=== PATIENT | male | born 1955 | race African-American/Black ===

== ENCOUNTER 2017-05-22 21:34 | Inpatient (IN) ==
[2017-05-22] MEDS ORDERED: ETOMIDATE 20 MG/10 ML VIAL IV ONE (21:46)
--- NOTE | 2017-05-22 21:46 | Emergency Department Note ---
Arrival - Arrival Chief Complaint: Altered Mental Status Stated Complaint: ams ED Nursing Triage Note: unresponsive, blood sugar read low, aginal breathing, pulse was 32 Mode of Arrival: Stretcher Time Seen by Provider: 05/22/17 21:42 - History of Present Illness HPI Narrative: The patient is a mentally retarded 61-year-old who was found to have elevated liver enzymes recently and is currently undergoing workup. Hepatitis and HIV have not been confirmed nor excluded. The family called the ambulance today because the patient was found unresponsive. On their arrival his sugar was 20. They gave him an amp of D50 which improved the sugar to 281. The patient remains in agonal respirations and appears dusky. He is unresponsive and unable to contribute to his history. The family member present states that she has the power of trial attorney and that she does not want any heroic measures taken given the patient's current medical condition. Additionally she states that he has been through "a lot" and that he is mentally retarded. She is unsure whether he has had any recent nausea vomiting or fever. Review of System - Review of System ROS unobtainable: due to mental status - Review of System Genitourinary male: Present: other Endocrine: Present: other (Rapid weight loss) Medical,Surgical,& Family Hx - Medical History Gastrointestinal: History of: Hepatitis (Elevated liver enzymes per family history) Other: History of: HIV (Unconfirmed) Exam Physical Examination: General: Patient is cachectic and very emaciated. He is currently demonstrating agonal respirations and is unresponsive. His skin is dusky. He appears very pale. HEENT: The extraocular muscles are intact. Conjunctiva pale. Oropharynx is moist. There is no erythema or exudate. The tympanic membranes are shiny bilaterally. Neck: There is no adenopathy. Full range of motion is noted without pain. The trachea is midline. No JVD is present. Lungs: There is normal excursion of the chest with the lungs s demonstrating wheezes bilaterally. No subcostal retractions are present. There is no point tenderness present. Heart: The heart has a regular rate and rhythm with no gallops or murmurs. Abdomen: The abdomen is nontender and nondistended with no rebound, guarding, or masses. Bowel sounds are normal. Back: The back demonstrates a normal appearance with no evidence of trauma. Genitourinary: Not examined. Extremities: The extremities demonstrate no clubbing, cyanosis, or edema. The visualized range of motion is normal. They appear atraumatic. Neuro: Cranial nerves II through XII are difficult to check given his current mental status. He has a staring gaze but is otherwise unable to be examined. Focal motor or sensory deficits in the extremities are difficult to determine. Skin: Skin is warm and dry with no evidence of rash. Very poor skin turgor is noted. Vital Signs: Vital Signs Pulse Rate 57 L 05/22/17 22:13 Respiratory Rate 8 L 05/22/17 22:13 Blood Pressure 145/102 05/22/17 22:13 Course - Reevaluation(s) Reevaluation #1: The patient continues to demonstrate hypoventilation with respiratory rate around 6-10 breaths per minute. He is still essentially unresponsive with eyes open and unable to contribute to any history. The chest x-ray demonstrates hyperinflation and suggest emphysematous changes. No definite parenchymal opacity is present. Fluid boluses in place. I have ordered BiPAP and waiting for the BiPAP machine to arrive. CBC demonstrates neutropenia. Time: 22:05 Reevaluation #2: The patient appears possibly slightly more responsive. He may be making improved inspiratory effort. He remains unresponsive. Systolic pressure 100 mmHg. Heart rate remains 60. Time: 22:51 - Consultations Consultation #1: The hospitalist will admit to the hospitalist service. Time: 23:32 Results - Labs CBC & BMP: 05/22/17 21:49 05/22/17 22:50 Lab Results: I have reviewed the patients labs Labs: Lab Results WBC 2.2 T/CUMM (4-12) L 05/22/17 21:49 RBC 4.38 MC/CUMM (3.8-5.5) 05/22/17 21:49 Hgb 13.4 GM/DL (14.0-18.0) L 05/22/17 21:49 Hct 37.1 VOL% (42.0-52.0) L 05/22/17 21:49 MCV 84.7 FL (87-102) L 05/22/17 21:49 MCH 31 PG (27-34) 05/22/17 21:49 MCHC 36.1 GM/DL (32-36) H 05/22/17 21:49 RDW 12.7 % (9.3-17.3) 05/22/17 21:49 Plt Count 115 T/CUMM (130-400) L 05/22/17 21:49 MPV 10.2 FL (9.6-12.0) 05/22/17 21:49 Neut % (Auto) 85.6 % (38.7-73.9) H 05/22/17 21:49 Lymph % (Auto) 9.0 % (21.2-54.2) L 05/22/17 21:49 [place] % (Auto) 4.5 % (1.7-12.7) 05/22/17 21:49 Eos % (Auto) 0.0 % (0.00-10.9) 05/22/17 21:49 Baso % (Auto) 0.0 % (0.0-0.8) 05/22/17 21:49 Neut # (Auto) 1.9 10*3/uL (1.4-7.4) 05/22/17 21:49 Lymph # (Auto) 0.2 10*3/uL (1.4-4.0) L 05/22/17 21:49 [place] # (Auto) 0.1 10*3/uL (0.11-0.8) L 05/22/17 21:49 Eos # (Auto) 0.0 10*3/uL (0.0-0.87) 05/22/17 21:49 Baso # (Auto) 0.0 10*3/uL (0.0-0.2) 05/22/17 21:49 Immature Gran % 0.9 % 05/22/17 21:49 Nucleated RBC % 0.0 /100WBC 05/22/17 21:49 Immature Gran # 0.02 # 05/22/17 21:49 Nucleated RBCs # 0.00 10*3/uL 05/22/17 21:49 Sodium 125 MMOL/L (136-145) L 05/22/17 22:50 Potassium 3.9 MMOL/L (3.5-5.1) 05/22/17 22:50 Chloride 94 MMOL/L (98-107) L 05/22/17 22:50 Carbon Dioxide 23 MMOL/L (21-32) 05/22/17 22:50 Anion Gap 11.9 MMOL/L (5.0-15.0) 05/22/17 22:50 BUN 25 MG/DL (7-18) H 05/22/17 22:50 Creatinine 0.30 MG/DL (0.70-1.30) L 05/22/17 22:50 GFR Calculation 122 ML/MIN 05/22/17 22:50 BUN/Creatinine Ratio 83.00 RATIO (6.00-20.00) H 05/22/17 22:50 Glucose 301 MG/DL (74-106) H 05/22/17 22:50 Calculated Osmolality 265.5 MOS/KG (273-304) L 05/22/17 22:50 Calcium 6.5 MG/DL (8.5-10.1) L 05/22/17 22:50 Total Bilirubin 0.40 MG/DL (0.2-1.0) 05/22/17 22:50 AST 494 U/L (0-37) H 05/22/17 22:50 ALT 272 U/L (16-61) H 05/22/17 22:50 Alkaline Phosphatase 68 U/L (45-117) 05/22/17 22:50 Total Creatine Kinase 206 U/L (39-308) 05/22/17 21:49 CK-MB (CK-2) 19.6 NG/ML (0.5-3.6) H 05/22/17 21:49 CK and CKMB Interp 9.5 % 05/22/17 21:49 Troponin I 0.032 NG/ML (0.00-0.045) 05/22/17 21:49 B-Natriuretic Peptide 301 PG/ML (2-100) H 05/22/17 21:49 Total Protein 3.0 G/DL (6.4-8.3) L 05/22/17 22:50 Albumin 1.5 G/DL (3.4-5.0) L 05/22/17 22:50 Globulin 1.5 G/DL (2.3-3.5) L 05/22/17 22:50 Albumin/Globulin Ratio 1.0 RATIO (1.1-2.2) L 05/22/17 22:50 Urine Color Yellow (Yellow) 05/22/17 21:47 Urine Appearance Clear (Clear) 05/22/17 21:47 Urine pH 7.0 (4.5-8.0) 05/22/17 21:47 Ur Specific Chunky 1.014 (1.001-1.035) 05/22/17 21:47 Urine Protein 100 MG/DL 05/22/17 21:47 Urine Glucose (UA) >=500 mg/dL (Negative) 05/22/17 21:47 Urine Ketones Negative mg/dL (Negative) 05/22/17 21:47 Urine Blood Small mg/dL (Negative) 05/22/17 21:47 Urine Nitrate Negative (Negative) 05/22/17 21:47 Urine Bilirubin Negative mg/dL (Negative) 05/22/17 21:47 Urine Urobilinogen 4.0 EU/DL (0.2-1.0) H 05/22/17 21:47 Urine Leukocytes Negative Júnior/ul (Negative) 05/22/17 21:47 Urine RBC 2 /HPF (0-4) 05/22/17 21:47 Urine WBC 2 /HPF (0-6) 05/22/17 21:47 Ur Squamous Epith Cells Occasional /HPF (0-10) 05/22/17 21:47 Ur Transition Epith Cell Occasional /HPF (<1) 05/22/17 21:47 Urine Bacteria Occasional /HPF (Few) 05/22/17 21:47 Urine Mucus Occasional /LPF (Occasional) 05/22/17 21:47 Ur Culture Indicated? Not indicated 05/22/17 21:47 ABG pH 7.068 (7.35-7.45) L* 05/22/17 22:52 ABG pCO2 38.6 MM HG (35-48) 05/22/17 22:52 ABG pO2 43.8 MM HG (80-95) L 05/22/17 22:52 ABG HCO3 10.4 MMOL/L (20-26) L 05/22/17 22:52 ABG Total CO2 11.3 MMOL/L (23-27) L 05/22/17 22:52 ABG O2 Saturation 55.9 % (95-100) L 05/22/17 22:52 ABG Base Excess -17.6 MMOL/L (-2.5-2.5) L 05/22/17 22:52 FiO2 28.00 PERCENT (0-100) 05/22/17 22:52 - Diagnostic Findings Procedure: Chest x-ray: image reviewed by me (Hyperinflation. No definite parenchymal opacities.) Critical Care Time Critical Care Time: Yes Total Critical Care Time: 54 Disposition Clinical Impression: Delirium due to general medical condition, Multiple episodes of hypoglycemia, Wasting generalized, Leukopenia Case discussed with: patient, patient's family Disposition: Still a Patient Condition: Critical Time of Disposition: 23:30
[2017-05-22] MEDS ORDERED: SUCCINYLCHOLINE 200 MG/10 ML VIAL ONE (21:47)
[2017-05-22] MEDS ORDERED: ALBUTEROL 2.5 MG/3 ML NEB RESP TX STA (21:49)
[2017-05-22] MEDS ORDERED: SODIUM CHLORIDE 0.9% 2,000 ML IV STA (21:49)
[2017-05-22 21:57] LABS: Hematocrit 37.1 VOL% (42.0-52.0); Hemoglobin 13.4 GM/DL (14.0-18.0); Immature Granulocytes % 0.9 %; Immature Granulocytes Absolute 0.02 #; Lymphocytes # 0.2 10*3/uL (1.4-4.0); Mean Corpuscular HGB Conc 36.1 GM/DL (32-36); Mean Corpuscular Hemoglobin 31 PG (27-34); Mean Corpuscular Volume 84.7 FL (87-102); Mean Platelet Volume 10.2 FL (9.6-12.0); Monocytes # 0.1 10*3/uL (0.11-0.8); Monocytes % 4.5 % (1.7-12.7); Neutrophils # 1.9 10*3/uL (1.4-7.4); Neutrophils % 85.6 % (38.7-73.9); Platelet Count 115 T/CUMM (130-400); Red Blood Count 4.38 MC/CUMM (3.8-5.5); Red Cell Distribution Width 12.7 % (9.3-17.3); White Blood Count 2.2 T/CUMM (4-12)
[2017-05-22 22:06] LABS: Apearance,Urine CLEAR (Clear); Bacteria,Urine Occasional /HPF (Few); Bilirubin,Urine Negative (Negative); Blood, Urine Small mg/dL (Negative); Glucose,Urine (UA) >=500 mg/dL (Negative); Ketones,Urine Negative (Negative); Mucus,Urine Occasional /LPF (Occasional); Nitrite,Urine Negative (Negative); Protein,Urine 100 MG/DL; RBC,Urine 2 /HPF (0-4); Squamous Epithelial Cell,Urine Occasional /HPF (0-10); Transitional Epi Cells,Urine Occasional /HPF (<1); Urine Color Yellow (Yellow); Urine Specific Gravity 1.014 (1.001-1.035); WBC,Urine 2 /HPF (0-6)
[2017-05-22] MEDS ORDERED: cefTRIAXone 1,000 MG VIAL IV STA (22:08)
[2017-05-22 22:21] LABS: CKMB % 9.5 %; Troponin I Only 0.032 NG/ML (0.00-0.045)
[2017-05-22] MEDS ORDERED: cefTRIAXone 1,000 MG VIAL ONE (22:21)
[2017-05-22] MEDS ORDERED: SODIUM CHLORIDE 0.9% 100 ML IV ONE (22:21)
[2017-05-22] MEDS ORDERED: DEXTROSE 50% 25 GM/50 ML VIAL IV STA (22:30)
[2017-05-22] MEDS ORDERED: DEXTROSE 50% 25 GM/50 ML VIAL IV ONE (22:37)
[2017-05-22 23:00] LABS: ABG Base Excess -17.6 MMOL/L (-2.5-2.5); ABG HCO3 10.4 MMOL/L (20-26); ABG Oxygen Saturation 55.9 % (95-100); ABG PCO2 38.6 MM HG (35-48); ABG PO2 43.8 MM HG (80-95); ABG TCO2 11.3 MMOL/L (23-27); Allen Test Positive; Pt O2 Delivery Device BIPAP
[2017-05-22] MEDS ORDERED: SODIUM CHLORIDE 0.9% 1,000 ML IV STA (23:03)
[2017-05-22 23:04] LABS: ABG PH 7.068 (7.35-7.45)
[2017-05-22 23:24] LABS: Albumin 1.5 G/DL (3.4-5.0); Bilirubin,Total 0.4 MG/DL (0.2-1.0); Calcium 6.5 MG/DL (8.5-10.1); Osmolality,Calculated 265.5 MOS/KG (273-304); Potassium 3.9 MMOL/L (3.5-5.1)
--- NOTE | 2017-05-23 00:47 | Hospitalist History & Physical ---
Assessment and Plan (1) Unresponsiveness Status: Acute Assessment and plan: Patient is having agonal respirations, he is dusky in appearance. Family do not want any heroic measures and want him to be a DNR. Aetiology of condition is unclear, differentials include- sepsis, dehydration, severe acidosis, repeated vs prolonged hypoglycemia, ?HIV-advance Plan -Admit to a monitored bed IVF, IV broadspectrum antibiotics Panculture- blood, urine, family not really interested in CSF analysis CT head if patient is stable enough HIV testing CD4 count hepatitis panel ammonia level consider hospice care Cardiac enzymes INR Current Visit: Yes (2) Leukopenia Status: Acute Assessment and plan: Family states patient is being worked up for HIV. Plan HIV testing CD4 count CBC in am Current Visit: Yes (3) Multiple episodes of hypoglycemia Status: Acute Assessment and plan: Family states patient is not a known Diabetic. Blood sugar was in the 20s at home, EMS gave an amp of D50, he also received another one in the ER.His blood sugar is currently in the 300s Plan SSC, accuchecks HbA1c level C-peptide, pro insulin levels Current Visit: Yes (4) Wasting generalized Status: Acute Assessment and plan: will need a Nutritional consult if he pulls through Current Visit: Yes History of Present Illness Chief complaint: unresponsiveness History of present illness: Mr. Mitchell is a 61 year old male with a history of mental retardation,elevated liver enzymes who is being worked up for Hepatitis and HIV as outpatient was brought to the ER for evaluation of altered mental status. Family members found him at home unresponsive this evening. EMS was called and his blood sugar was found to be 20. They gave him an amp of D50 which improved the sugar to 281. When I saw him in the ER, he was in agonal respirations, minimally responsive, dusky, hypothermic. His blood pressure dropped requiring boluses of IVF. His Labs showed severe acidosis with a ph-7.0, PCO2-38.6,PO2-43.8 and a bicarbonates of 10.4.Lactic was 2.3 and WBC-2.2.The family member present states that she has the power of deputy commonwealth's attorney and that she does not want any heroic measures taken given the patient's current medical condition. She made patient a DNR knowing that patient's prognosis is guarded.History was not detailed and fully known by Family members. Allergies Allergy/AdvReac Type Severity Reaction Status Date / Time No Known Allergies Allergy Unverified 05/23/17 00:47 Medical,Surgical,& Family Hx - Medical History Gastrointestinal: History of: Hepatitis (Elevated liver enzymes per family history) Other: History of: HIV (Unconfirmed) - Social History Smoking Status: Never smoker Frequency of Alcohol Use: None Type of Drug Use: None ROS unobtainable: due to mental status, due to delirium Exam - Constitutional Vitals: Period Temp Pulse Resp BP Sys/Tellez Pulse Ox Last 24 Hr 96.8 F 57-63 8-18 143-145/93-102 General appearance: severe distress, other (agonal respirations on BIPAP) - Head Head exam: Present: normal inspection - Respiratory Respiratory exam: Present: decreased breath sounds - Cardiovascular Cardiovascular exam: Present: regular rate and rhythm - GI/Abdominal GI/Abdominal exam: Present: normal bowel sounds - Extremities Exam Extremities exam: Present: normal inspection - Neurological Exam Neurological exam: Present: other (unresponsive) Results - Labs CBC & BMP: 05/22/17 21:49 05/22/17 22:50 Lab Results: I have reviewed the past 24 hour labs
[2017-05-23] MEDS ORDERED: SODIUM CHLORIDE 0.9% 1,000 ML IV SCH (02:11)
[2017-05-23] MEDS ORDERED: GLUCAGON 1 MG VIAL IM PRN (02:11)
[2017-05-23] MEDS ORDERED: VANCOMYCIN INJ 1,000 MG in SODIUM CHLORIDE 0.9% 250 ML IV ONE (03:00)
[2017-05-23] MEDS: CEFEPIME 500 MG in SODIUM CHLORIDE 0.9% 100 ML IV SCH ×2 (03:58→15:32)
[2017-05-23] MEDS: DEXTROSE 50% 25 GM/50 ML VIAL IV PRN ×5 (05:23→23:50)
[2017-05-23] MEDS: INSULIN REGULAR 100 UNIT/ML SUBCUT SCH ×4 (05:28→23:56)
--- NOTE | 2017-05-23 06:26 | EKG Report ---
Stationary ECG Study [facility] Test Date: 05/23/2017 2:31:54 AM Pat Name: CARLOS PRICE Department: Room: 545 Gender: M Database Management Specialist: SLIM : [id number] Requested by: Florinda Guaman Order Number: [id number] Reading MD: GUILLERMO MADRIGAL Intervals [place] Rate: 68 P: 77 LA: 162 QRS: 88 QRSD: 91 T: 116 QT: 403 QTc: 421 Interpretive Statements SINUS RHYTHM SEPTAL MYOCARDIAL INFARCTION, OLD Electronically Signed On 05-23-17 12:53:32 CDT by GUILLERMO MADRIGAL [email or web address]
--- NOTE | 2017-05-23 07:10 | XRay Report ---
XR chest 1V portable Indication: Chest pain, shortness of breath Comparison: None available Findings: The heart and mediastinum are normal in size and configuration. The pulmonary vascularity is normal in caliber. Lung volumes are increased with prominent bronchial markings. There is suggestion of some faint to patchy density in the left lung base. No other lung infiltrates, effusions, pneumothorax or other abnormality is demonstrated. Impression: Chronic lung changes. Faint patchy left lower lung density could indicate pneumonia. PROCEDURE INTERPRETED AT [facility] DEPARTMENT OF RADIOLOGY Final Report Signed by: Dr. Adolfo Castrejon
[2017-05-23 07:53] LABS: INR 1.2; PT Patient Result 12.9 SECS
[2017-05-23 08:16] LABS: CKMB % 8.6 %; Troponin I Only 0.386 NG/ML (0.00-0.045)
[2017-05-23 08:29] LABS: Risk Ratio 1.1; Thyroid Stimulating Hormone 0.966 uIU/ml (0.358-3.74); VLDL CHOLESTEROL 3.2 MG/DL
[2017-05-23 08:55] LABS: Folate 17.3 NG/ML (5.4-24.0); Hepatitis A Ab IgM Quant 0.32 Index; Hepatitis A Ab IgM Result Negative (Negative); Hepatitis B Core Ab Result Negative (Negative); Hepatitis B Core IgM Quant < 0.05 Index; Hepatitis B Surface Ab Result Negative; Hepatitis B Surface Ag Quant < 0.10 Index; Hepatitis B Surface Ag Result Negative (Negative); Vitamin B12 > 2000 PG/ML (211-911)
[2017-05-23 08:56] LABS: Hepatitis B Core IgM Result Negative (Negative); Hepatitis C Virus Ab Quant 0.09 Index; Hepatitis C Virus Ab Result Negative (Negative)
[2017-05-23 08:58] LABS: Albumin 2.4 G/DL (3.4-5.0); Bilirubin,Total 0.9 MG/DL (0.2-1.0); Calcium 7.6 MG/DL (8.5-10.1); Osmolality,Calculated 258.2 MOS/KG (273-304); Potassium 4.1 MMOL/L (3.5-5.1); Total Protein 4.9 G/DL (6.4-8.3)
[2017-05-23 09:41] LABS: Lymphocytes # 0.1 10*3/uL (1.4-4.0); Lymphocytes % 22.9 % (21.2-54.2); Mean Corpuscular HGB Conc 38.2 GM/DL (32-36); Mean Corpuscular Hemoglobin 31 PG (27-34); Mean Corpuscular Volume 80.2 FL (87-102); Mean Platelet Volume 10.2 FL (9.6-12.0); Monocytes % 4.2 % (1.7-12.7); Neutrophils # 0.4 10*3/uL (1.4-7.4); Neutrophils % 72.9 % (38.7-73.9); Platelet Count 132 T/CUMM (130-400); Red Blood Count 4.24 MC/CUMM (3.8-5.5); Red Cell Distribution Width 12.3 % (9.3-17.3)
[2017-05-23 09:44] LABS: White Blood Count 0.5 T/CUMM (4-12)
[2017-05-23 10:36] LABS: ABG Base Excess -3.9 MMOL/L (-2.5-2.5); ABG HCO3 20.9 MMOL/L (20-26); ABG Oxygen Saturation 82.3 % (95-100); ABG PH 7.321 (7.35-7.45); ABG PO2 53.6 MM HG (80-95); ABG TCO2 19.5 MMOL/L (23-27); Allen Test Positive; Pt O2 Delivery Device BIPAP
[2017-05-23] MEDS: DEXTROSE 5% NACL 0.9% 1,000 ML IV SCH (11:01)
[2017-05-23 11:23] LABS: Burr Cells Slight; Hypochromasia Slight; Lymphocytes 20 % (20-55); Platelet Estimate Normal; Segmented Neutrophils 80 % (50-85); Total Cells Counted 100
--- NOTE | 2017-05-23 13:44 | Cardiology Consult Note ---
Pepe Taylor Vanessa RN, am scribing for, and in the presence of, Steff Mora DO 13 :42. Assessment and Plan - Time spent with patient Time spent with patient: Greater than 30 minutes (Due to assessment, planning, documentation, and medication review) (1) Troponin I above reference range Status: Acute Assessment and plan: No clinical findings for ACS. I do not think this represents any clinical significance in the setting. Current Visit: Yes (2) Elevated LFTs Status: Acute Assessment and plan: LFTs have progressively elevated since labs drawn on May 15. Hepatitis panel is negative. The patient has had recurrent hypoglycemia. This appears to be a marker for poor hepatic synthetic function however his INR is only 1.2. Current Visit: Yes (3) Leukopenia Status: Acute Assessment and plan: Afebrile. Patient is being evaluated for HIV and other viral issues Current Visit: Yes (4) Unresponsiveness Status: Acute Assessment and plan: Patient is mentally handicapped. He has now been found unresponsive with severe hypoglycemia, and his labs are grossly abnormal. CT of the head unable to be obtained due to patient's mental status and inability lie still. 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 Mitchell is a 61 year old black male whose past medical history includes mental retardation, elevated LFTs as of recently. Per family reports, patient is currently being worked up for hepatitis and HIV on outpatient basis. Patient was brought to [facility] ED on the evening of May 22 after his family found him unresponsive. Per EMS reports, his glucose was found to be 20, and after he was administered 1 amp of D50, glucose improved to 81. However, he remains more unresponsive than baseline, and he was noted to be agonal in the emergency room. Blood work drawn in the ER reveals leukopenia. ABGs were also drawn, severe acidosis noted, and oxygen saturation levels were in the 70s. Chest x-ray demonstrated chronic lung changes and possible left lower lobe pneumonia. Patient was placed on BiPAP machine and has been admitted to medical floor room. In the course of diagnostic workup, patient has had 2 sets of cardiac biomarkers drawn. Most recent set with troponin 0.386 with a normal CPK. Cardiology has not been consulted for evaluation of abnormal cardiac biomarkers. Since admission, the patient's cousin who is also his power of goodyear stitcher, has changed CODE STATUS to DO NOT RESUSCITATE. She is present with him this afternoon during exam and interview. Patient is essentially unresponsive and is noncontributory. Patient's cousin reports that prior to admission, she did not feel that patient had experienced any chest pain or other significant complaint, and he had not recently "grabbed his chest" or other to indicate discomfort. She reports the patient takes no routine home medications except for current prescription of clindamycin for "occasional infection." The patient 's cousin is unsure of any medical history other than patient had a mental handicap and recently having LFT elevation. Family history positive for mother who had heart attack, but family member is unsure of what age mother was. Patient does not appear to be in acute distress at this time. He does have BiPAP machine in place. He is not cooperative with physical exam today. Labs reviewed. As above. ABGs noted. CK-MB elevation 48.0. LFT progressively elevated since May 15 with current AST 1011, ALT 589. Hepatitis panel negative. EKG was negative for acute ischemic finding. I had a lengthy discussion with the patient's power of [employer] stitcher and cousin Pily who has been taking care of the patient since the patient's mother . She has expressed concern that the patient could potentially have HIV because the patient's sister has recently from HIV and he "came from that environment." She specifically states that he did not use IV drugs or any drugs that she was ever aware of. The patient appears to have hepatic failure with secondary hypoglycemia and inappropriate response to hypoglycemic challenges and do not know how long he has been having this. He is profoundly cachectic and wasted with a impressive leukopenia. He appears to have some major underlying diagnosis either infectious or hematologic. His caregiver certainly seems to have great concern for the patient and has acted apparently as much as possible to see that he has good health. She tells me that he was walking yesterday he walked into Dr. Barajas's office but was unable to walk without assistance because of advanced cataracts were scheduled to be removed in the next month. His DNR status is noted as above. He has a trivial troponin elevation in the face of the significant CK and CK-MB and MB elevation and I doubt this is cardiac in nature. I do not feel that further cardiac workup is warranted at this time. At this time I have nothing to add if further assistance is needed please call CC: Nury Coronado MD - Home Medications and Allergies Home Medications: Home Medications Medication Instructions Recorded Confirmed Type Clindamycin HCl [Clindamycin Cap] 150 mg PO TID 05/23/17 05/23/17 History Allergies/Adverse Reactions: Allergies Allergy/AdvReac Type Severity Reaction Status Date / Time No Known Allergies Allergy Unverified 05/23/17 03:32 ROS unobtainable: due to mental status Medical,Surgical,& Family Hx - Medical History Medical History: noncontributory Cardio: No history of: Cardiac Dysrhythmia, CHF, CAD, Hypertension, PA, Valvular Heart Disease Psychological: No history of: Anxiety Disorders, Depression HEENT: History of: Eye Problem (cataracts) Endocrine: No history of: Diabetes Mellitus (IDDM), Dyslipidemia, Thyroid Disorder Respiratory: No history of: COPD, Obstructive Sleep Apnea Renal: No history of: Renal Problems Gastrointestinal: History of: Hepatitis (Elevated liver enzymes per family history) No history of: GERD Hematology: No history of: Anemia, Blood Transfusion Reaction Other: History of: HIV (Unconfirmed) - Surgical History Cardiac Surgeries: Patient Denies: Cardiac Catheterization, Cardiac Surgery - Family History Family History: Reports;: Family Heart Disease - Social History Smoking Status: Never smoker Frequency of Alcohol Use: None Type of Drug Use: None Physical Examination Vital Signs Temp Pulse Resp BP 96.8 F L 63 18 143/93 05/22/17 21:35 05/22/17 21:35 05/22/17 21:35 05/22/17 21:35 General: Present: Cachectic, Other (Emaciated, chronically ill) HEENT: Present: Pallor Neck: Present: Midline Trachea, No JVD/HJR, No Masses, No Bruit Cardiac: Present: Reg Rate and Rhythm, No Murmur. Absent: Tachycardia, Bradycardia Lungs: Present: Wheezes (Scattered throughout), Oxygen (BiPAP), Other (Coarse lung sounds throughout) Neuro: Present: Other (Difficult to assess due to mental status) Abdomen: Present: Soft, Active Bowel Sounds. Absent: Ascites, Distended Skin: Present: Cool, Other (Multiple scratches of bilateral upper extremities; family member reports patient frequently scratches his arms at home, breakdown hips covered) Musculoskeletal: Present: Decreased Range of Motion Extremities: Present: No Clubbing, No Cyanosis, No Edema, Normal Upper Extr. Pulses (2+ bilaterally), Normal Lower Extr. Pulses (2+ bilaterally), Capillary Refill (Normal), Other Result/EKG - Labs CBC & BMP: 05/23/17 08:47 05/23/17 07:06 Lab Results: I have reviewed the past 24 hour labs Labs: Laboratory Results - last 24 hr 05/22/17 05/22/17 05/22/17 21:41 21:47 21:49 WBC 2.2 L RBC 4.38 Hgb 13.4 L Hct 37.1 L MCV 84.7 L MCH 31 MCHC 36.1 H RDW 12.7 Plt Count 115 L MPV 10.2 Neut % (Auto) 85.6 H Lymph % (Auto) 9.0 L Garrard % (Auto) 4.5 Eos % (Auto) 0.0 Baso % (Auto) 0.0 Neut # (Auto) 1.9 Lymph # (Auto) 0.2 L Garrard # (Auto) 0.1 L Eos # (Auto) 0.0 Baso # (Auto) 0.0 Total Counted Immature Gran % 0.9 Nucleated RBC % 0.0 Immature Gran # 0.02 Segmented Neutrophils Lymphocytes Nucleated RBCs # 0.00 Platelet Estimate Hypochromasia [place] Cells Morphology Comment INR PT Patient/Control Mix ABG pH ABG pCO2 ABG pO2 ABG HCO3 ABG Total CO2 ABG O2 Saturation ABG Base Excess FiO2 Sodium Potassium Chloride Carbon Dioxide Anion Gap BUN Creatinine GFR Calculation BUN/Creatinine Ratio Glucose POC Glucose 218 H Hemoglobin A1c Calculated Osmolality Lactic Acid Calcium Total Bilirubin AST ALT Alkaline Phosphatase Ammonia Total Creatine Kinase CK-MB (CK-2) CK and CKMB Interp Troponin I B-Natriuretic Peptide Total Protein Albumin Globulin Albumin/Globulin Ratio Triglycerides Cholesterol LDL Cholesterol VLDL Cholesterol HDL Cholesterol Heart Disease Risk Ratio Vitamin B12 Folate TSH 3rd Generation Urine Color Yellow Urine Appearance Clear Urine pH 7.0 Ur Specific [place] 1.014 Urine Protein 100 Urine Glucose (UA) >=500 Urine Ketones Negative Urine Blood Small Urine Nitrate Negative Urine Bilirubin Negative Urine Urobilinogen 4.0 H Urine Leukocytes Negative Urine RBC 2 Urine WBC 2 Ur Squamous Epith Cells Occasional Ur Transition Epith Cell Occasional Urine Bacteria Occasional Urine Mucus Occasional Ur Culture Indicated? Not indicated Treponema pallidum IgG Hepatitis A IgM Ab Hep Bs Antigen Hep Bs Antibody Hep B Core Total Ab Hep B Core IgM Ab Hepatitis C Antibody 05/22/17 05/22/17 05/22/17 21:49 21:49 22:31 WBC RBC Hgb Hct MCV MCH MCHC RDW Plt Count MPV Neut % (Auto) Lymph % (Auto) Garrard % (Auto) Eos % (Auto) Baso % (Auto) Neut # (Auto) Lymph # (Auto) Garrard # (Auto) Eos # (Auto) Baso # (Auto) Total Counted Immature Gran % Nucleated RBC % Immature Gran # Segmented Neutrophils Lymphocytes Nucleated RBCs # Platelet Estimate Hypochromasia [place] Cells Morphology Comment INR PT Patient/Control Mix ABG pH ABG pCO2 ABG pO2 ABG HCO3 ABG Total CO2 ABG O2 Saturation ABG Base Excess FiO2 Sodium Potassium Chloride Carbon Dioxide Anion Gap BUN Creatinine GFR Calculation BUN/Creatinine Ratio Glucose POC Glucose 58 L Hemoglobin A1c Calculated Osmolality Lactic Acid Calcium Total Bilirubin AST ALT Alkaline Phosphatase Ammonia Total Creatine Kinase 206 CK-MB (CK-2) 19.6 H CK and CKMB Interp 9.5 Troponin I 0.032 B-Natriuretic Peptide 301 H Total Protein Albumin Globulin Albumin/Globulin Ratio Triglycerides Cholesterol LDL Cholesterol VLDL Cholesterol HDL Cholesterol Heart Disease Risk Ratio Vitamin B12 Folate TSH 3rd Generation Urine Color Urine Appearance Urine pH Ur Specific [place] Urine Protein Urine Glucose (UA) Urine Ketones Urine Blood Urine Nitrate Urine Bilirubin Urine Urobilinogen Urine Leukocytes Urine RBC Urine WBC Ur Squamous Epith Cells Ur Transition Epith Cell Urine Bacteria Urine Mucus Ur Culture Indicated? Treponema pallidum IgG Hepatitis A IgM Ab Hep Bs Antigen Hep Bs Antibody Hep B Core Total Ab Hep B Core IgM Ab Hepatitis C Antibody 05/22/17 05/22/17 05/23/17 22:50 22:52 02:02 WBC RBC Hgb Hct MCV MCH MCHC RDW Plt Count MPV Neut % (Auto) Lymph % (Auto) Garrard % (Auto) Eos % (Auto) Baso % (Auto) Neut # (Auto) Lymph # (Auto) Garrard # (Auto) Eos # (Auto) Baso # (Auto) Total Counted Immature Gran % Nucleated RBC % Immature Gran # Segmented Neutrophils Lymphocytes Nucleated RBCs # Platelet Estimate Hypochromasia [place] Cells Morphology Comment INR PT Patient/Control Mix ABG pH 7.068 L* ABG pCO2 38.6 ABG pO2 43.8 L ABG HCO3 10.4 L ABG Total CO2 11.3 L ABG O2 Saturation 55.9 L ABG Base Excess -17.6 L FiO2 28.00 Sodium 125 L Potassium 3.9 Chloride 94 L Carbon Dioxide 23 Anion Gap 11.9 BUN 25 H Creatinine 0.30 L GFR Calculation 122 BUN/Creatinine Ratio 83.00 H Glucose 301 H POC Glucose 84 Hemoglobin A1c Calculated Osmolality 265.5 L Lactic Acid Calcium 6.5 L Total Bilirubin 0.40 AST 494 H ALT 272 H Alkaline Phosphatase 68 Ammonia Total Creatine Kinase CK-MB (CK-2) CK and CKMB Interp Troponin I B-Natriuretic Peptide Total Protein 3.0 L Albumin 1.5 L Globulin 1.5 L Albumin/Globulin Ratio 1.0 L Triglycerides Cholesterol LDL Cholesterol VLDL Cholesterol HDL Cholesterol Heart Disease Risk Ratio Vitamin B12 Folate TSH 3rd Generation Urine Color Urine Appearance Urine pH Ur Specific [place] Urine Protein Urine Glucose (UA) Urine Ketones Urine Blood Urine Nitrate Urine Bilirubin Urine Urobilinogen Urine Leukocytes Urine RBC Urine WBC Ur Squamous Epith Cells Ur Transition Epith Cell Urine Bacteria Urine Mucus Ur Culture Indicated? Treponema pallidum IgG Hepatitis A IgM Ab Hep Bs Antigen Hep Bs Antibody Hep B Core Total Ab Hep B Core IgM Ab Hepatitis C Antibody 05/23/17 05/23/17 05/23/17 05:15 05:18 05:34 WBC RBC Hgb Hct MCV MCH MCHC RDW Plt Count MPV Neut % (Auto) Lymph % (Auto) Garrard % (Auto) Eos % (Auto) Baso % (Auto) Neut # (Auto) Lymph # (Auto) Garrard # (Auto) Eos # (Auto) Baso # (Auto) Total Counted Immature Gran % Nucleated RBC % Immature Gran # Segmented Neutrophils Lymphocytes Nucleated RBCs # Platelet Estimate Hypochromasia [place] Cells Morphology Comment INR PT Patient/Control Mix ABG pH ABG pCO2 ABG pO2 ABG HCO3 ABG Total CO2 ABG O2 Saturation ABG Base Excess FiO2 Sodium Potassium Chloride Carbon Dioxide Anion Gap BUN Creatinine GFR Calculation BUN/Creatinine Ratio Glucose POC Glucose 29 L* 24 L* 309 H Hemoglobin A1c Calculated Osmolality Lactic Acid Calcium Total Bilirubin AST ALT Alkaline Phosphatase Ammonia Total Creatine Kinase CK-MB (CK-2) CK and CKMB Interp Troponin I B-Natriuretic Peptide Total Protein Albumin Globulin Albumin/Globulin Ratio Triglycerides Cholesterol LDL Cholesterol VLDL Cholesterol HDL Cholesterol Heart Disease Risk Ratio Vitamin B12 Folate TSH 3rd Generation Urine Color Urine Appearance Urine pH Ur Specific [place] Urine Protein Urine Glucose (UA) Urine Ketones Urine Blood Urine Nitrate Urine Bilirubin Urine Urobilinogen Urine Leukocytes Urine RBC Urine WBC Ur Squamous Epith Cells Ur Transition Epith Cell Urine Bacteria Urine Mucus Ur Culture Indicated? Treponema pallidum IgG Hepatitis A IgM Ab Hep Bs Antigen Hep Bs Antibody Hep B Core Total Ab Hep B Core IgM Ab Hepatitis C Antibody 05/23/17 05/23/17 05/23/17 06:50 07:05 07:06 WBC RBC Hgb Hct MCV MCH MCHC RDW Plt Count MPV Neut % (Auto) Lymph % (Auto) Garrard % (Auto) Eos % (Auto) Baso % (Auto) Neut # (Auto) Lymph # (Auto) Garrard # (Auto) Eos # (Auto) Baso # (Auto) Total Counted Immature Gran % Nucleated RBC % Immature Gran # Segmented Neutrophils Lymphocytes Nucleated RBCs # Platelet Estimate Hypochromasia [place] Cells Morphology Comment INR 1.2 PT Patient/Control Mix 12.9 ABG pH ABG pCO2 ABG pO2 ABG HCO3 ABG Total CO2 ABG O2 Saturation ABG Base Excess FiO2 Sodium Potassium Chloride Carbon Dioxide Anion Gap BUN Creatinine GFR Calculation BUN/Creatinine Ratio Glucose POC Glucose Hemoglobin A1c Calculated Osmolality Lactic Acid Calcium Total Bilirubin AST ALT Alkaline Phosphatase Ammonia 29 Total Creatine Kinase CK-MB (CK-2) CK and CKMB Interp Troponin I B-Natriuretic Peptide Total Protein Albumin Globulin Albumin/Globulin Ratio Triglycerides Cholesterol LDL Cholesterol VLDL Cholesterol HDL Cholesterol Heart Disease Risk Ratio Vitamin B12 > 2000 H Folate 17.3 TSH 3rd Generation Urine Color Urine Appearance Urine pH Ur Specific [place] Urine Protein Urine Glucose (UA) Urine Ketones Urine Blood Urine Nitrate Urine Bilirubin Urine Urobilinogen Urine Leukocytes Urine RBC Urine WBC Ur Squamous Epith Cells Ur Transition Epith Cell Urine Bacteria Urine Mucus Ur Culture Indicated? Treponema pallidum IgG Nonreactive Hepatitis A IgM Ab Negative Hep Bs Antigen Negative Hep Bs Antibody Negative Hep B Core Total Ab Negative Hep B Core IgM Ab Negative Hepatitis C Antibody Negative 05/23/17 05/23/17 05/23/17 07:06 07:06 07:06 WBC RBC Hgb Hct MCV MCH MCHC RDW Plt Count MPV Neut % (Auto) Lymph % (Auto) Garrard % (Auto) Eos % (Auto) Baso % (Auto) Neut # (Auto) Lymph # (Auto) Garrard # (Auto) Eos # (Auto) Baso # (Auto) Total Counted Immature Gran % Nucleated RBC % Immature Gran # Segmented Neutrophils Lymphocytes Nucleated RBCs # Platelet Estimate Hypochromasia [place] Cells Morphology Comment INR PT Patient/Control Mix ABG pH ABG pCO2 ABG pO2 ABG HCO3 ABG Total CO2 ABG O2 Saturation ABG Base Excess FiO2 Sodium 127 L Potassium 4.1 Chloride 97 L Carbon Dioxide 22 Anion Gap 12.1 BUN 23 H Creatinine 0.30 L GFR Calculation 110 BUN/Creatinine Ratio 76.00 H Glucose 91 POC Glucose Hemoglobin A1c Calculated Osmolality 258.2 L Lactic Acid Calcium 7.6 L Total Bilirubin 0.90 AST 1011 H ALT 589 H Alkaline Phosphatase 163 H Ammonia Total Creatine Kinase 560 H D CK-MB (CK-2) 48.0 H D CK and CKMB Interp 8.6 Troponin I 0.386 H D B-Natriuretic Peptide Total Protein 4.9 L Albumin 2.4 L Globulin 2.5 Albumin/Globulin Ratio 0.9 L Triglycerides 16 Cholesterol 144 LDL Cholesterol 11.0 VLDL Cholesterol 3.2 HDL Cholesterol 131 H Heart Disease Risk Ratio 1.10 Vitamin B12 Folate TSH 3rd Generation 0.966 Urine Color Urine Appearance Urine pH Ur Specific [place] Urine Protein Urine Glucose (UA) Urine Ketones Urine Blood Urine Nitrate Urine Bilirubin Urine Urobilinogen Urine Leukocytes Urine RBC Urine WBC Ur Squamous Epith Cells Ur Transition Epith Cell Urine Bacteria Urine Mucus Ur Culture Indicated? Treponema pallidum IgG Hepatitis A IgM Ab Hep Bs Antigen Hep Bs Antibody Hep B Core Total Ab Hep B Core IgM Ab Hepatitis C Antibody 05/23/17 05/23/17 05/23/17 08:47 08:47 10:15 WBC 0.5 L* D RBC 4.24 Hgb 13.0 L Hct 34.0 L MCV 80.2 L MCH 31 MCHC 38.2 H RDW 12.3 Plt Count 132 MPV 10.2 Neut % (Auto) 72.9 Lymph % (Auto) 22.9 Garrard % (Auto) 4.2 Eos % (Auto) 0.0 Baso % (Auto) 0.0 Neut # (Auto) 0.4 L Lymph # (Auto) 0.1 L Garrard # (Auto) 0.0 L Eos # (Auto) 0.0 Baso # (Auto) 0.0 Total Counted 100 Immature Gran % 0.0 Nucleated RBC % 0.0 Immature Gran # 0.00 Segmented Neutrophils 80 Lymphocytes 20 Nucleated RBCs # 0.00 Platelet Estimate Normal Hypochromasia Slight [place] Cells Slight Morphology Comment INR PT Patient/Control Mix ABG pH ABG pCO2 ABG pO2 ABG HCO3 ABG Total CO2 ABG O2 Saturation ABG Base Excess FiO2 Sodium Potassium Chloride Carbon Dioxide Anion Gap BUN Creatinine GFR Calculation BUN/Creatinine Ratio Glucose POC Glucose 44 L* Hemoglobin A1c 6.1 Calculated Osmolality Lactic Acid Calcium Total Bilirubin AST ALT Alkaline Phosphatase Ammonia Total Creatine Kinase CK-MB (CK-2) CK and CKMB Interp Troponin I B-Natriuretic Peptide Total Protein Albumin Globulin Albumin/Globulin Ratio Triglycerides Cholesterol LDL Cholesterol VLDL Cholesterol HDL Cholesterol Heart Disease Risk Ratio Vitamin B12 Folate TSH 3rd Generation Urine Color Urine Appearance Urine pH Ur Specific [place] Urine Protein Urine Glucose (UA) Urine Ketones Urine Blood Urine Nitrate Urine Bilirubin Urine Urobilinogen Urine Leukocytes Urine RBC Urine WBC Ur Squamous Epith Cells Ur Transition Epith Cell Urine Bacteria Urine Mucus Ur Culture Indicated? Treponema pallidum IgG Hepatitis A IgM Ab Hep Bs Antigen Hep Bs Antibody Hep B Core Total Ab Hep B Core IgM Ab Hepatitis C Antibody 05/23/17 05/23/17 05/23/17 10:25 10:56 Unknown WBC RBC Hgb Hct MCV MCH MCHC RDW Plt Count MPV Neut % (Auto) Lymph % (Auto) Garrard % (Auto) Eos % (Auto) Baso % (Auto) Neut # (Auto) Lymph # (Auto) Garrard # (Auto) Eos # (Auto) Baso # (Auto) Total Counted Immature Gran % Nucleated RBC % Immature Gran # Segmented Neutrophils Lymphocytes Nucleated RBCs # Platelet Estimate Hypochromasia [place] Cells Morphology Comment INR PT Patient/Control Mix ABG pH 7.321 L ABG pCO2 43.0 ABG pO2 53.6 L ABG HCO3 20.9 ABG Total CO2 19.5 L ABG O2 Saturation 82.3 L ABG Base Excess -3.9 L FiO2 28.00 Sodium Potassium Chloride Carbon Dioxide Anion Gap BUN Creatinine GFR Calculation BUN/Creatinine Ratio Glucose POC Glucose 206 H Hemoglobin A1c Calculated Osmolality Lactic Acid 2.3 H Calcium Total Bilirubin AST ALT Alkaline Phosphatase Ammonia Total Creatine Kinase CK-MB (CK-2) CK and CKMB Interp Troponin I B-Natriuretic Peptide Total Protein Albumin Globulin Albumin/Globulin Ratio Triglycerides Cholesterol LDL Cholesterol VLDL Cholesterol HDL Cholesterol Heart Disease Risk Ratio Vitamin B12 Folate TSH 3rd Generation Urine Color Urine Appearance Urine pH Ur Specific [place] Urine Protein Urine Glucose (UA) Urine Ketones Urine Blood Urine Nitrate Urine Bilirubin Urine Urobilinogen Urine Leukocytes Urine RBC Urine WBC Ur Squamous Epith Cells Ur Transition Epith Cell Urine Bacteria Urine Mucus Ur Culture Indicated? Treponema pallidum IgG Hepatitis A IgM Ab Hep Bs Antigen Hep Bs Antibody Hep B Core Total Ab Hep B Core IgM Ab Hepatitis C Antibody - Diagnostic Findings Procedure: Chest x-ray: image reviewed by me, report reviewed by me - EKG EKG results: interpreted by me, no acute changes EKG shows: sinus rhythm Quality Measures - VTE Contraindication to Pharmacological VTE Prophylaxis: Thrombocytopenia IAbby Shea, DO, personally performed the services described in this documentation, ascribed by Ana Cantu RN in my presence, and it is both accurate and complete [id number] .
--- NOTE | 2017-05-23 13:46 | Pulmonology Consult Note ---
History of Present Illness Chief complaint: Decreased level of consciousness History of present illness: Mr. Mitchell is a 61 year old male who is mentally retarded. He lives with his mother. Over the last week or so he has been more and more obtunded. Normally he can say a word or 2 but is not able to take care of himself. Apparently he is being evaluated for HIV and liver disease. He was brought in with a decreased level of consciousness yesterday. His white blood count is 500. Liver test markedly elevated. Chest x-ray shows a spot or 2 but really not enough to call her pneumonia. He is hypoxemic on facemask BiPAP. Unable to get into the assessment and plan section. Impression: 1. Decreased level of consciousness suspect sepsis urinary tract infection or advanced AIDS. 2. Mental retardation 3. Abnormal chest x-ray but I do not believe this indicates pneumonia. Recommendation broad-spectrum antibiotics rehydration testing for AIDS. Prognosis appears to be poor. His PO2 was 58 on BiPAP 14/7 with 2 L of oxygen. I have increased to 5 L. We can go higher than that to try to keep his O2 sat at 92% or above. Home Medications Medication Instructions Recorded Confirmed Type Clindamycin HCl [Clindamycin Cap] 150 mg PO TID 05/23/17 05/23/17 History Allergies Allergy/AdvReac Type Severity Reaction Status Date / Time No Known Allergies Allergy Unverified 05/23/17 03:32 ROS unobtainable: due to mental status Exam (Pulmonay) H&P - Constitutional Vitals: Period Temp Pulse Resp BP Sys/Tellez Pulse Ox Last 24 Hr 88 F-98.2 F 57-84 8-28 100-169/60-102 75-82 Exam: Vital signs normal. Patient not responsive. Pupils are reactive. He has a hernandez. Throat is clear. Neck supple no bruits. Chest sounds fairly clear. He does have a few scattered rhonchi. Heart normal rate rhythm no murmurs. Abdomen soft nontender no masses. Extremities no clubbing cyanosis edema. Calves nontender. Medical,Surgical,& Family Hx - Medical History HEENT: History of: Eye Problem (cataracts) Gastrointestinal: History of: Hepatitis (Elevated liver enzymes per family history) Other: History of: HIV (Unconfirmed) - Social History Smoking Status: Never smoker Frequency of Alcohol Use: None Type of Drug Use: None Results - Labs CBC & BMP: 05/23/17 08:47 05/23/17 07:06 Lab Results: I have reviewed the past 24 hour labs - Diagnostic Findings Procedure: Chest x-ray: image reviewed by me (Minimal rounded infiltrate at the left hilum. He does have some scoliosis. Concave to the left) Quality Measures - VTE Contraindication to Pharmacological VTE Prophylaxis: Thrombocytopenia
[2017-05-23] MEDS ORDERED: VANCOMYCIN INJ 500 MG in SODIUM CHLORIDE 0.9% 100 ML IV SCH (15:00)
[2017-05-23 16:12] LABS: HIV Antigen/Antibody Result Nonreactive (Nonreactive)
[2017-05-23] MEDS: VANCOMYCIN INJ 500 MG in SODIUM CHLORIDE 0.9% 100 ML IV SCH (16:37)
--- NOTE | 2017-05-23 16:51 | Hospitalist Progress Note ---
Exam - Constitutional Vitals: Period Temp Pulse Resp BP Sys/Tellez Pulse Ox Last 24 Hr 88 F-98.2 F 57-84 8-28 100-169/50-102 75-82 Results - Labs CBC & BMP: 05/23/17 08:47 05/23/17 07:06 Quality Measures - VTE Contraindication to Pharmacological VTE Prophylaxis: Thrombocytopenia
--- NOTE | 2017-05-23 17:09 | Event Note ---
Patient seen by me today. Family present at bedside. Patient still on Bipap. Unresponsive. He does fight against me opening his eyes. Acidosis is improved, Ph now 7.32. His leukopenia is worsening. Remains with intermittent hypoglycemia. He appears to be septic, but with no discernable source as of yet. UA and CXR both without acute process. Urine culture and blood cultures pending. HIV and CD4 count pending. Broadening antibiotics for more atypical and anaerobic coverage. Starting vancomycin, levaquin and zosyn. Cardiology consulted for bump in cardiac enzymes, most likely not ACS related. Pulmonary consulted to assist with respiratory status. Would like to obtain CT head and LP but patient is currently not stable enough. Patient was being worked up for elevated liver enzymes outpatient per family. Today with bump in AST, ALT and Alk phos. His bilirubin is within normal limits. GI consulted for assistance. Will also check a urine drug screen. Family reiterated that patient is a Do Not Resuscitate. His prognosis right now is very poor, this was explained to his family.
[2017-05-23] MEDS: LEVOFLOXACIN INJ 750 MG in PREMIX 1 EACH IV SCH (17:51)
--- NOTE | 2017-05-23 17:57 | Gastrointestinal Consult Note ---
Assessment and Plan (1) Ischemic hepatitis Status: Acute Assessment and plan: Patient may have had a Tylenol overdose however I believe that with these present picture of sepsis with low white blood cell count and dropping platelet level that is more likely that he suffered an episode of ischemia resulting in the elevations liver function tests, albeit transient. Patient's blood pressures here up on the floor have been better. I expect that his liver function tests will probably peak in the next 24-48 hours and start improving thereafter, provided this is not reflective of her previous Tylenol overdose that is now "catching up with him". The only evidence pointing towards that as a potential etiology is the fact that his kidney function is actually quite normal. We will simply watch his liver function tests over the next day or 2 provided he has not succumbed to his illness. He is not a candidate for transplant. He does not appear to have any HIV or hepatitis B or C. Will check his laboratories for underlying hemochromatosis and autoimmune hepatitis as well. I would like to obtain a liver ultrasound to look for masses in the liver as well as ascites. I agree with the patient's family that nothing aggressive should be done. Supportive care is all that is needed at this point , unfortunately it is too late at this point for Mucomyst protocol, even if this was a Tylenol overdose. Current Visit: Yes (2) Anemia Status: Acute Assessment and plan: Patient's hematocrit is 34%. I suspect that he probably has some bone marrow suppression with underlying sepsis as mentioned. Does not appear to be any gross evidence of a GI bleed. We will continue to monitor for the present time. No indication for endoscopic evaluation yet. If the patient survives the next several days it might be reasonable to obtain liver biopsy to make sure there is no diffuse parenchymal problem, and to establish the etiology of the transaminase elevation. Will follow with you, thank you for this interesting consult. Current Visit: Yes History of Present Illness Chief complaint: Elevated transaminases, AST greater than ALT History of present illness: Mr. Mitchell is a 61 year old male who is currently unresponsive and unable to answer any questions although he is not cooperative with the examination particularly look at his eyes, he keeps his tightly clamped closed. The patient has a history of mental retardation and recent elevated liver function tests and is being worked up for HIV given that his sister of this infection and was raised in the same environment. Jitendra Barajas is the patient's primary care provider, no comment can be made as far as the patient's drinking history or exposure IV drugs. By report the patient was brought to the [place] [facility]s emergency room on 05/22/17 when the family found him unresponsive and was noted to be hypoglycemic with a glucose of 20 with laboratories that were significant for severe acidosis and an O2 sat in the 70s, the patient has been placed on BiPAP but his family have made him a DNR and do not wish any extreme heroic measures taken. The lowest blood pressures I see in the computer were 100/60 but we do not know what he was running out in the field. He is not particularly anemic and has a hematocrit and hemoglobin of 34.0 and 13.0 respectively his white blood cell count is quite low at 0.5. It is unclear whether this is due to HIV versus an overwhelming sepsis, his platelet level is low at 132. Surprisingly his ammonia level is normal at 29 but his AST is 1011 , ALT of 589, alkaline phosphatase 163, bilirubin 0.9. Transaminase levels this wildly elevated speak to either Tylenol poisoning, ingestion of certain mushrooms or ischemic hepatitis of which I suspect the latter. Serology has been drawn including HIV and hepatitis A, B, and C and these are all negative. Patient's liver does not appear abnormally enlarged on physical examination, the patient does have some nodularity submucosally around the umbilicus of unclear etiology. Ultrasound has not been performed. He does have minimal elevation of his troponin, BUN and creatinine do not appear to be significantly affected and I would imagine these would be if he had had an ischemic event. Home Medications Medication Instructions Recorded Confirmed Type Clindamycin HCl [Clindamycin Cap] 150 mg PO TID 05/23/17 05/23/17 History Allergies Allergy/AdvReac Type Severity Reaction Status Date / Time No Known Allergies Allergy Unverified 05/23/17 03:32 Medical,Surgical,& Family Hx - Medical History Cardio: No history of: Cardiac Dysrhythmia, CHF, CAD, Hypertension, MD, Valvular Heart Disease Psychological: No history of: Anxiety Disorders, Depression HEENT: History of: Eye Problem (cataracts) Endocrine: No history of: Diabetes Mellitus (IDDM), Dyslipidemia, Thyroid Disorder Respiratory: No history of: COPD, Obstructive Sleep Apnea Renal: No history of: Renal Problems Gastrointestinal: History of: Hepatitis (Elevated liver enzymes per family history) No history of: GERD Hematology: No history of: Anemia, Blood Transfusion Reaction Other: History of: HIV (Unconfirmed) - Surgical History Cardiac Surgeries: Patient Denies: Cardiac Catheterization, Cardiac Surgery - Family History Family History: Reports;: Family Heart Disease - Social History Smoking Status: Never smoker Frequency of Alcohol Use: None Type of Drug Use: None ROS unobtainable: due to encephalopathy Exam - Constitutional Vitals: Period Temp Pulse Resp BP Sys/Tellez Pulse Ox Last 24 Hr 88 F-98.2 F 57-84 8-28 100-169/50-102 75-82 General appearance: normal weight Exam: Constitutional: Well-developed, poorly-nourished, cachectic black male, unarousable but in no acute distress Head and face: Head: Normocephalic atraumatic Eyes: Conjunctiva without injection, no gross scleral icterus, pupils equal and round bilaterally Ears: Intact to conversation in both ears Nose: External appearance is normal, nares patent Mouth: Cannot be evaluated due to BiPAP covering the nose and mouth Neck: Normal appearance, no masses or tenderness, trachea midline Thyroid: Gland midline and appropriate size for age Respiratory: Labored respiratory effort, decreased breath sounds in the bases without wheezes, or rales--some scattered rhonchi noted Cardiovascular: Regular rate and rhythm, normal S1, S2, the exam is without rubs, murmurs or gallops. Gastrointestinal: Mild distention of abdomen with some tympany to palpation , hypoactive active bowel sounds, tone normal without rigidity or guarding, no masses present, no hepatomegaly, no spleen tip felt. No rectal exam obtained. Lymphatic: Neck without adenopathy, axilla without lymphadenopathy present Musculoskeletal: Right and left lower extremities with trace pretibial evidence of edema. Skin and subcutaneous tissue: No rashes o noted, normal skin turgor, digits and nails without clubbing/cyanosis/deformities. He does have some decubiti in his hips Neurologic: The patient is grossly oriented to person place and time, cranial nerves show tongue movements are normal with normal tongue extrusion midline, light touch sensation is intact. Psychiatric: Unable to evaluate as the patient is obtunded at this time. Results - Labs CBC & BMP: 05/23/17 08:47 05/23/17 07:06 Quality Measures - VTE Contraindication to Pharmacological VTE Prophylaxis: Thrombocytopenia
[2017-05-23 18:33] LABS: % Iron Saturation 41.2 % (18-50)
[2017-05-23 18:55] LABS: Barbiturates Screen,Urine Negative (Negative); Benzodiazepines Screen,Urine Negative (Negative); Cannabinoid Screen,Urine Negative (Negative); Opiate Screen,Urine Negative (Negative); Phencyclidine Screen,Urine Negative (Negative)
[2017-05-23] MEDS: PIPERACILLIN/TAZOBACTAM 3,375 MG in SODIUM CHLORIDE 0.9% 100 ML IV SCH (19:20)
[2017-05-24] MEDS: VANCOMYCIN INJ 500 MG in SODIUM CHLORIDE 0.9% 100 ML IV SCH ×2 (03:25→16:17)
[2017-05-24] MEDS: PIPERACILLIN/TAZOBACTAM 3,375 MG in SODIUM CHLORIDE 0.9% 100 ML IV SCH ×3 (03:29→19:54)
--- NOTE | 2017-05-24 06:52 | Gastrointestinal Progress Note ---
Assessment and Plan (1) Ischemic hepatitis Status: Acute Assessment and plan: Patient may have had a Tylenol overdose however I believe that with these present picture of sepsis with low white blood cell count and dropping platelet level that is more likely that he suffered an episode of ischemia resulting in the elevations liver function tests, albeit transient. Patient's blood pressures here up on the floor have been better. I expect that his liver function tests will probably peak in the next 24-48 hours and start improving thereafter, provided this is not reflective of her previous Tylenol overdose that is now "catching up with him". The only evidence pointing towards that as a potential etiology is the fact that his kidney function is actually quite normal. We will simply watch his liver function tests over the next day or 2 provided he has not succumbed to his illness. He is not a candidate for transplant. He does not appear to have any HIV or hepatitis B or C. Will check his laboratories for underlying hemochromatosis and autoimmune hepatitis as well. I would like to obtain a liver ultrasound to look for masses in the liver as well as ascites. I agree with the patient's family that nothing aggressive should be done. Supportive care is all that is needed at this point , unfortunately it is too late at this point for Mucomyst protocol, even if this was a Tylenol overdose. 05/24/17--The sister gives the information that this is likely not a Tylenol overdose. Iron saturation has returned and that demonstrates no evidence of hemochromatosis. Patient does not have hepatitis B or C and does not have HIV. This is still likely an ischemic hepatitis caused by hypotension either from arrhythmia or overwhelming infection most likely. We will continue to watch his liver function tests which should start to improve over the next 24-48 hours , provided his condition remained stable and his infection is being treated. His condition is still guarded. He remains afebrile and laboratories from today are pending. Current Visit: Yes (2) Anemia Status: Acute Assessment and plan: Patient's hematocrit is 34%. I suspect that he probably has some bone marrow suppression with underlying sepsis as mentioned. Does not appear to be any gross evidence of a GI bleed. We will continue to monitor for the present time. No indication for endoscopic evaluation yet. If the patient survives the next several days it might be reasonable to obtain liver biopsy to make sure there is no diffuse parenchymal problem, and to establish the etiology of the transaminase elevation. Will follow with you, thank you for this interesting consult. 05/24/17--we will continue to monitor. The laboratories from today are pending. Current Visit: Yes Gastroenterology - PN: Subj Interval history: I discussed this case with his sister was at the bedside, she states that he is really not able to open up bottles and so a Tylenol overdose is nearly impossible for this patient to have experienced. He cannot talk typically in very short stereotypic words such as "I am hungry" or "yes" and "no " Exam (Progress Note) - Constitutional Vitals: Period Temp Pulse Resp BP Sys/Tellez Pulse Ox Last 24 Hr 95.8 F-97.7 F 63-91 16-23 94-132/50-73 81-98 General appearance: mild distress - Head Head exam: Present: normocephalic - Respiratory Respiratory exam: Present: clear to auscultation bilaterally. Absent: rhonchi, stridor, wheezes - Cardiovascular Cardiovascular exam: Present: regular rate and rhythm - GI/Abdominal GI/Abdominal exam: Present: normal bowel sounds, distended, firm. Absent: tenderness, rebound - Extremities Exam Extremities exam: Absent: edema - Neurological Exam Neurological exam: Present: altered (The patient remains somnolent and poorly responsive to verbal commands but he does withdrawal to painful stimuli) - Psychiatric Psychiatric exam: Present: flat affect Results - Labs CBC & BMP: 05/23/17 08:47 05/23/17 07:06
[2017-05-24] MEDS: INSULIN REGULAR 100 UNIT/ML SUBCUT SCH ×4 (07:06→23:44)
[2017-05-24 07:14] LABS: Albumin 1.9 G/DL (3.4-5.0); Bilirubin,Direct 0.4 MG/DL (0.0-0.20); Bilirubin,Indirect 0.9 MG/DL (0.0-1.0); Bilirubin,Total 1.3 MG/DL (0.2-1.0); Total Protein 4.3 G/DL (6.4-8.3)
--- NOTE | 2017-05-24 08:02 | Pulmonology Progress Note ---
Pulmonary - PN: Subj Interval history: This 61-year-old man who has mental retardation is in with apparent sepsis. He appeared more than yesterday but looks a little better today. Blood cultures are negative thus far. Oxygen saturation has improved and I think we can try him on some nasal oxygen. Exam (Progress Note) - Constitutional Vitals: Period Temp Pulse Resp BP Sys/Tellez Pulse Ox Last 24 Hr 95.8 F-97.7 F 63-91 16-23 94-132/50-73 81-98 Exam: Vital signs normal. Pupils react to light. Facemask BiPAP in place. Neck supple no bruits. Chest shows minimal rhonchi today, sounds much better than yesterday. Heart normal rate and rhythm no murmurs. Abdomen soft bowel sounds present. Extremities no clubbing cyanosis or edema. Calves nontender. Results - Labs CBC & BMP: 05/23/17 08:47 05/23/17 07:06 Lab Results: I have reviewed the past 24 hour labs Assessment and Plan (1) Sepsis Status: Acute Assessment and plan: Acute sepsis syndrome. Neutropenia decreased level of consciousness. On broad- spectrum antibiotics. Source of sepsis is not clear yet. Blood cultures negative. Do not think he has pneumonia. Current Visit: Yes (2) Pancytopenia Status: Acute Assessment and plan: Platelet count and hematocrit only mildly decreased but with marked leukopenia. Consider medication induced. Current Visit: Yes (3) Wasting generalized Status: Acute Assessment and plan: Generalized debilitation and poor nutritional status. Current Visit: Yes (4) Leukopenia Status: Acute Assessment and plan: Total neutrophil count down to 500. Current Visit: Yes (5) Elevated LFTs Status: Acute Assessment and plan: GI evaluating. Current Visit: Yes
--- NOTE | 2017-05-24 08:15 | Ultrasound Report ---
Exam: US abdomen Date:05/24/2017 5:56 PM Comparison: None Indication: Elevated liver enzymes. Elevated transaminases Technique: Real-time ultrasound images are captured and archived. Findings: Multiple mobile highly echogenic foci, some with intermittent posterior acoustic shadowing, compatible with gallstones are noted in the lumen of the gallbladder. The gallbladder wall is thickened at 3 mm. There is no abnormal biliary dilatation. There is no focal hepatic mass. The pancreas appears normal. The spleen appears normal. The kidneys are hyperechoic to the hepatic parenchyma diffusely compatible with medical renal parenchymal disease. There is no focal renal mass or hydronephrosis. There is mild atherosclerotic irregularity of the abdominal aorta without aneurysm. IVC is patent. There is hepatopedal flow in the portal vein. Impression: Cholelithiasis and gallbladder wall thickening Medical renal parenchymal disease IMPORTANT MEASUREMENTS Liver Length: 10.1 cm length Gallbladder Wall Thickness: 3.2 mm mm CBD: 2 mm mm Spleen: Length 4.7 cm cm Width 2.3 cm cm Right kidney: Length: 7.5 cm cm Width: 5.8 cm cm AP: 5.2 cm cm Left kidney: Length: 8.4 cmcm Width 4.7 cm cm AP 5.3 cmcm Aorta: Proxmial: 1.6 cmcm Mid: 1.4 cmcm Distal: 1.3 cm cm The Ultrasound images were captured and stored. PROCEDURE INTERPRETED AT [facility] DEPARTMENT OF RADIOLOGY Final Report Signed by: Dr. Christal Crews
[2017-05-24] MEDS: DEXTROSE 5% NACL 0.9% 1,000 ML IV SCH ×4 (09:39→18:20)
--- NOTE | 2017-05-24 09:40 | Physician Query Form ---
CLICK EDIT DOCUMENT TO SELECT QUERY ANSWER --> OK --> SIGN Mendy Szymanski RN Clinical [employer] J[employer] Supervisor W) [phone] (f) [phone] [email or web address]: Make your selection(s) from the choices in EACH section by typing an "x" and enter comments in the comment section. Please use your independent medical judgment in providing your response. This request does not imply that any particular answer is desired or expected. CLINICAL INDICATORS: (Providers should not edit this section) Based on lab results of sodium = 125. Pt. treated with IV fluids of Normal Saline. Based on the above, could you clarify the appropriate diagnosis, if significant , that supports the above abnormalities and additional evaluation, monitoring, and/or treatment rendered: ( x) Pt. treated for hyponatremia ( ) Pt. not treated for hyponatremia ( ) Other, please specify: ( ) Clinically unable to determine COMMENTS: PLEASE ALSO DOCUMENT RESPONSE IN PROGRESS NOTES AND/OR DISCHARGE SUMMARY Use of terms such as suspected, likely, or probable (associated with a specific diagnosis that is being evaluated, monitored, or treated as if it exists) are acceptable and can be restated in the discharge summary if not ruled out. [facility]
[2017-05-24 10:09] LABS: Calcium 8.1 MG/DL (8.5-10.1); Magnesium 1.9 MG/DL (1.8-2.4); Osmolality,Calculated 262.7 MOS/KG (273-304); Potassium 4.4 MMOL/L (3.5-5.1)
[2017-05-24 10:29] LABS: Basophils % 0.4 % (0.0-0.8); Eosinophils % 0.1 % (0.00-10.9); Hematocrit 37.7 VOL% (42.0-52.0); Immature Granulocytes % 0.9 %; Immature Granulocytes Absolute 0.07 #; Lymphocytes # 0.3 10*3/uL (1.4-4.0); Lymphocytes % 3.6 % (21.2-54.2); Mean Corpuscular HGB Conc 38.2 GM/DL (32-36); Mean Corpuscular Hemoglobin 31 PG (27-34); Mean Corpuscular Volume 80.9 FL (87-102); Monocytes # 0.2 10*3/uL (0.11-0.8); Monocytes % 2.6 % (1.7-12.7); NRBC # 0.04 10*3/uL; Neutrophils % 92.4 % (38.7-73.9); Red Blood Count 4.66 MC/CUMM (3.8-5.5); Red Cell Distribution Width 12.7 % (9.3-17.3); White Blood Count 7.6 T/CUMM (4-12)
[2017-05-24 11:02] LABS: Hemoglobin 14.4 GM/DL (14.0-18.0); Platelet Count 92 T/CUMM (130-400)
[2017-05-24 11:07] LABS: Band Neutrophils 10 % (0-10); Burr Cells Slight; Giant Platelets Few; Lymphocytes 7 % (20-55); Platelet Estimate Decreased; Segmented Neutrophils 81 % (50-85); Total Cells Counted 100
[2017-05-24 11:08] LABS: Hypochromasia Slight
--- NOTE | 2017-05-24 11:24 | Hospitalist Progress Note ---
Assessment and Plan (1) Multiple episodes of hypoglycemia Status: Acute Assessment and plan: Continue on D5 Current Visit: Yes (2) Wasting generalized Status: Acute Assessment and plan: HIV negative Current Visit: Yes (3) Leukopenia Status: Acute Assessment and plan: normal today, will recheck Current Visit: Yes (4) Unresponsiveness Status: Acute Current Visit: Yes (5) Elevated LFTs Status: Acute Assessment and plan: Improving Current Visit: Yes (6) Sepsis Status: Acute Assessment and plan: Of unknown etiology CXR without acute process Urine culture and blood culture without growth to date WBC count is wnl today, but with over 90% neutrophils, will recheck as was previously with extreme leukopenia (his body might be attempting to mount an appropriate response now) Covering broadly now with vancomycin, levaquin and zosyn Lactic acid back to normal HIV negative Consulting Infectious Disease Current Visit: Yes (7) Hyponatremia Status: Acute Current Visit: Yes (8) Respiratory failure Status: Acute Assessment and plan: Acidotic on admission Improved with Bipap Pulmonary assisting Looks like we can try him on nc today Current Visit: Yes Hospitalist: Subjective Interval history: No acute events overnight. Patient still unresponsive with his eyes closed. No family present this morning during my exam. Still wearing bipap. Exam - Constitutional Vitals: Period Temp Pulse Resp BP Sys/Tellez Pulse Ox Last 24 Hr 96.3 F-97.7 F 63-91 16-23 94-132/50-82 81-98 General appearance: cachectic - Head Head exam: Present: normocephalic, atraumatic - Eye Eye exam: Present: EOMI Pupils: Present: FATOU - ENT ENT exam: Present: normal exam - Neck Neck exam: Present: normal inspection - Respiratory Respiratory exam: Present: clear to auscultation bilaterally. Absent: rhonchi, wheezes - Cardiovascular Cardiovascular exam: Present: regular rate and rhythm - GI/Abdominal GI/Abdominal exam: Present: normal bowel sounds, soft. Absent: tenderness, rebound - Extremities Exam Extremities exam: Present: normal inspection - Back Exam Back exam: Present: normal inspection - Neurological Exam Neurological exam: Present: alert, other (unresponsive) - Psychiatric Psychiatric exam: Present: other (unresponsive) - Skin Skin exam: Present: warm, intact Results - Labs CBC & BMP: 05/24/17 10:14 05/24/17 06:27 Quality Measures - VTE Contraindication to Pharmacological VTE Prophylaxis: Thrombocytopenia
[2017-05-24 12:25] LABS: ABG Base Excess -1.1 MMOL/L (-2.5-2.5); ABG HCO3 23.5 MMOL/L (20-26); ABG Oxygen Saturation 99.6 % (95-100); ABG PH 7.454 (7.35-7.45); ABG TCO2 18.6 MMOL/L (23-27)
--- NOTE | 2017-05-24 16:21 | CT Report ---
CT brain Indication: Altered mental status Comparison: None available Technique: Axial CT imaging of the brain is performed without contrast with 3 mm increments. Findings: No evidence of hemorrhage, mass mass effect midline shift or acute infarct seen. There is moderate diffuse cerebral atrophy. There are areas of decreased density seen within the white matter likely related to chronic microvascular changes. Otherwise the brain parenchyma attenuation and differentiation appears within normal limits. The ventricles and cisterns are normal in caliber. No cranial or skull base abnormality is identified. Impression: No evidence of acute process demonstrated. This CT exam was performed using one or more the following dose reduction techniques: Automated exposure control, adjustment of the MA and/or KV according to patient size, or use of iterative reconstruction technique. PROCEDURE INTERPRETED AT [facility] DEPARTMENT OF RADIOLOGY Final Report Signed by: Dr. Adolfo Castrejon
--- NOTE | 2017-05-24 16:41 | CT Report ---
CT chest abdomen pelvis w con Indication: Sepsis Comparison: None available Technique: Axial CT imaging of the chest, abdomen and pelvis is performed with intravenous oral contrast. Contrast dose is 60 cc of Omnipaque 350.. Findings: CT chest: Heart, mediastinum are within normal limits. The great vessels show no evidence of abnormality Small bilateral pleural effusions and lower lung airspace density is present. This is more extensive in the left lower lung with bronchiectasis present. No other evidence of lung parenchymal abnormality is seen. No pneumothorax or effusion is present. No chest wall abnormalities are identified. CT abdomen: There is body wall edema and small amount of ascites. The liver, spleen, pancreas, adrenal glands and kidneys are normal in size and enhancement. No evidence of focal lesion is demonstrated in the solid organs. The bowel detail and separation is limited without oral contrast. The bowel caliber is normal and no wall thickening or adjacent inflammatory change is seen. No evidence of free fluid or free air is present. CT pelvis: The bowel and bladder appear within normal limits. The pelvic organs show no evidence of abnormality. Impression: Body wall edema and small amount of ascites. Left lower lung airspace density with bronchograms, may indicate pneumonia. Small bilateral pleural effusions. No other definite evidence of abnormality demonstrated. PROCEDURE INTERPRETED AT [facility] DEPARTMENT OF RADIOLOGY Final Report Signed by: Dr. Adolfo Castrejon
--- NOTE | 2017-05-24 16:45 | Infectious Disease Consult ---
Assessment and Plan (1) Leukopenia Status: Acute Assessment and plan: Not sure the cause of the leukopenia, he actually has pancytopenia and maybe this is medication induced. Infection is a possibility but no obvious focus at this time, no clear-cut pneumonia no UTI apparent. We are still waiting to see if he has bloodstream infection. Recommendations: 1. Agree with empiric antibiotics that are being given now on 2. Follow-up cultures particularly of the blood, and adjust antibiotics accordingly Thank you very much for the consult. Will follow. Prognosis poor Current Visit: Yes (2) Wasting generalized Status: Acute Current Visit: Yes History of Present Illness Chief complaint: Neutropenia, suspected sepsis History of present illness: History obtained from the chart has no family available and patient not able to provide same due to mental state. Mr. Mitchell is a 61 year old male admitted to hospital 2 days ago after family found him at home unresponsive. Apparently has mental retardation. Has not had fever since he came in and white blood cell count was normal but he was severely acidotic and had agonal respirations on presentation. He has been on by Pap. Her blood cell count today dipped acutely to 0.4. He is on empiric antibiotics including vancomycin, Zosyn, and levofloxacin. I am asked to assist with management. Home Medications Medication Instructions Recorded Confirmed Type Clindamycin HCl [Clindamycin Cap] 150 mg PO TID 05/23/17 05/23/17 History Allergies Allergy/AdvReac Type Severity Reaction Status Date / Time No Known Allergies Allergy Unverified 05/23/17 03:32 ROS unobtainable: due to mental status Medical,Surgical,& Family Hx - Medical History Cardio: No history of: Cardiac Dysrhythmia, CHF, CAD, Hypertension, MA, Valvular Heart Disease Psychological: No history of: Anxiety Disorders, Depression HEENT: History of: Eye Problem (cataracts) Endocrine: No history of: Diabetes Mellitus (IDDM), Dyslipidemia, Thyroid Disorder Respiratory: No history of: COPD, Obstructive Sleep Apnea Renal: No history of: Renal Problems Gastrointestinal: History of: Hepatitis (Elevated liver enzymes per family history) No history of: GERD Hematology: No history of: Anemia, Blood Transfusion Reaction Other: History of: HIV (Unconfirmed) - Surgical History Cardiac Surgeries: Patient Denies: Cardiac Catheterization, Cardiac Surgery - Family History Family History: Reports;: Family Heart Disease - Social History Smoking Status: Never smoker Frequency of Alcohol Use: None Type of Drug Use: None Infectious Disease Exam H&P - Constitutional Vitals: Vital Signs Temp Pulse Resp BP Pulse Ox 96.8 F L 100 H 20 132/63 100 05/24/17 12:00 05/24/17 12:00 05/24/17 15:30 05/24/17 12:00 05/24/17 12:00 Intake and Output 05/24/17 05/24/17 05/24/17 07:59 15:59 23:59 Intake Total 1100 / 1100 1300 / 1300 100 / 100 Output Total 400 / 400 800 / 800 Balance 700 / 700 500 / 500 100 / 100 Intake: IV 1100 / 1100 1300 / 1300 100 / 100 D5 Ns 1,000 ml @ 100 mls/ 1200 / 1200 hr IV .Q10H [facility] Rx#: [id number] Zosyn 3,375 mg In Ns 100 100 / 100 100 / 100 ml @ 25 mls/hr IV Q8H [facility] Rx#:[id number] Vancomycin Inj 500 mg In 100 / 100 Ns 100 ml @ 100 mls/hr IV Q12H [facility] Rx#:[id number] Oral 0 / 0 Output: Urine 400 / 400 800 / 800 Other: Voiding Method Indwelling Catheter Indwelling Catheter # Bowel Movements 0 0 Exam: General: Patient chronically ill looking, cachectic HEENT: Very difficult to examine as patient was extremely uncooperative, would not allow me to open his eyes, could not examine his mouth properly he was wearing the BiPAP mask Neck: Supple, no thyroid gland enlargement, no lymphadenopathy Respiratory system: Breath sounds vesicular, no crepitations or wheezes Cardiovascular: Normal S1 and S2, no murmurs appreciated Abdomen: Normal bowel sounds, soft nontender throughout, no organomegaly or mass Genitourinary: No suprapubic pain or bladder distention Extremities: no edema Skin: No rash but he has scratch bustamante over his upper extremities, no bedsores Reports - Labs CBC & BMP: 05/24/17 10:14 05/24/17 06:27 Labs: Laboratory Results - last 24 hr 05/23/17 05/23/17 05/23/17 17:25 18:26 18:40 WBC RBC Hgb Hct MCV MCH MCHC RDW Plt Count MPV Neut % (Auto) Lymph % (Auto) [place] % (Auto) Eos % (Auto) Baso % (Auto) Neut # (Auto) Lymph # (Auto) [place] # (Auto) Eos # (Auto) Baso # (Auto) Total Counted Immature Gran % Nucleated RBC % Immature Gran # Segmented Neutrophils Band Neutrophils Lymphocytes Monocytes Nucleated RBCs # Platelet Estimate Giant Platelets Immature Plt Fraction Hypochromasia [place] Cells Morphology Comment ESR Westergren ABG pH ABG pCO2 ABG pO2 ABG HCO3 ABG Total CO2 ABG O2 Saturation ABG Base Excess Sodium Potassium Chloride Carbon Dioxide Anion Gap BUN Creatinine GFR Calculation BUN/Creatinine Ratio Glucose POC Glucose 88 Calculated Osmolality Lactic Acid Calcium Magnesium Iron TIBC % Saturation Total Bilirubin Direct Bilirubin Indirect Bilirubin AST ALT Alkaline Phosphatase C-Reactive Protein Total Protein Albumin Urine Opiates Screen Negative Ur Barbiturates Screen Negative Ur Phencyclidine Scrn Negative U Amphetamine/Methamph Negative U Benzodiazepines Scrn Negative U Cocaine Metab Screen Negative U Cannabinoids Screen Negative [place] Screen Negative (<1:160) 05/23/17 05/23/17 05/23/17 20:52 23:46 Unknown WBC RBC Hgb Hct MCV MCH MCHC RDW Plt Count MPV Neut % (Auto) Lymph % (Auto) [place] % (Auto) Eos % (Auto) Baso % (Auto) Neut # (Auto) Lymph # (Auto) M[place] # (Auto) Eos # (Auto) Baso # (Auto) Total Counted Immature Gran % Nucleated RBC % Immature Gran # Segmented Neutrophils Band Neutrophils Lymphocytes Monocytes Nucleated RBCs # Platelet Estimate Giant Platelets Immature Plt Fraction Hypochromasia [place] Cells Morphology Comment ESR Westergren ABG pH ABG pCO2 ABG pO2 ABG HCO3 ABG Total CO2 ABG O2 Saturation ABG Base Excess Sodium Potassium Chloride Carbon Dioxide Anion Gap BUN Creatinine GFR Calculation BUN/Creatinine Ratio Glucose POC Glucose 98 70 L Calculated Osmolality Lactic Acid Calcium Magnesium Iron 75 TIBC 182 L % Saturation 41.2 Total Bilirubin Direct Bilirubin Indirect Bilirubin AST ALT Alkaline Phosphatase C-Reactive Protein Total Protein Albumin Urine Opiates Screen Ur Barbiturates Screen Ur Phencyclidine Scrn U Amphetamine/Methamph U Benzodiazepines Scrn U Cocaine Metab Screen U Cannabinoids Screen [place] Screen 05/24/17 05/24/17 05/24/17 03:38 05:39 06:27 WBC RBC Hgb Hct MCV MCH MCHC RDW Plt Count MPV Neut % (Auto) Lymph % (Auto) M[place] % (Auto) Eos % (Auto) Baso % (Auto) Neut # (Auto) Lymph # (Auto) M[place] # (Auto) Eos # (Auto) Baso # (Auto) Total Counted Immature Gran % Nucleated RBC % Immature Gran # Segmented Neutrophils Band Neutrophils Lymphocytes Monocytes Nucleated RBCs # Platelet Estimate Giant Platelets Immature Plt Fraction Hypochromasia [place] Cells Morphology Comment ESR Westergren ABG pH ABG pCO2 ABG pO2 ABG HCO3 ABG Total CO2 ABG O2 Saturation ABG Base Excess Sodium Potassium Chloride Carbon Dioxide Anion Gap BUN Creatinine GFR Calculation BUN/Creatinine Ratio Glucose POC Glucose 131 H 129 H Calculated Osmolality Lactic Acid 1.4 Calcium Magnesium Iron TIBC % Saturation Total Bilirubin Direct Bilirubin Indirect Bilirubin AST ALT Alkaline Phosphatase C-Reactive Protein Total Protein Albumin Urine Opiates Screen Ur Barbiturates Screen Ur Phencyclidine Scrn U Amphetamine/Methamph U Benzodiazepines Scrn U Cocaine Metab Screen U Cannabinoids Screen [place] Screen 05/24/17 05/24/17 05/24/17 06:27 06:27 06:27 WBC RBC Hgb Hct MCV MCH MCHC RDW Plt Count MPV Neut % (Auto) Lymph % (Auto) M[place] % (Auto) Eos % (Auto) Baso % (Auto) Neut # (Auto) Lymph # (Auto) M[place] # (Auto) Eos # (Auto) Baso # (Auto) Total Counted Immature Gran % Nucleated RBC % Immature Gran # Segmented Neutrophils Band Neutrophils Lymphocytes Monocytes Nucleated RBCs # Platelet Estimate Giant Platelets Immature Plt Fraction Hypochromasia [place] Cells Morphology Comment ESR Westergren 20 ABG pH ABG pCO2 ABG pO2 ABG HCO3 ABG Total CO2 ABG O2 Saturation ABG Base Excess Sodium Potassium Chloride Carbon Dioxide Anion Gap BUN Creatinine GFR Calculation BUN/Creatinine Ratio Glucose POC Glucose Calculated Osmolality Lactic Acid Calcium Magnesium Iron TIBC % Saturation Total Bilirubin 1.30 H Direct Bilirubin 0.40 H Indirect Bilirubin 0.9 AST 332 H ALT 331 H Alkaline Phosphatase 119 H C-Reactive Protein 9.97 H Total Protein 4.3 L Albumin 1.9 L Urine Opiates Screen Ur Barbiturates Screen Ur Phencyclidine Scrn U Amphetamine/Methamph U Benzodiazepines Scrn U Cocaine Metab Screen U Cannabinoids Screen [place] Screen 05/24/17 05/24/17 05/24/17 06:27 07:34 08:09 WBC RBC Hgb Hct MCV MCH MCHC RDW Plt Count MPV Neut % (Auto) Lymph % (Auto) [place] % (Auto) Eos % (Auto) Baso % (Auto) Neut # (Auto) Lymph # (Auto) [place] # (Auto) Eos # (Auto) Baso # (Auto) Total Counted Immature Gran % Nucleated RBC % Immature Gran # Segmented Neutrophils Band Neutrophils Lymphocytes Monocytes Nucleated RBCs # Platelet Estimate Giant Platelets Immature Plt Fraction Hypochromasia [place] Cells Morphology Comment ESR Westergren ABG pH ABG pCO2 ABG pO2 ABG HCO3 ABG Total CO2 ABG O2 Saturation ABG Base Excess Sodium 131 L Potassium 4.4 Chloride 101 Carbon Dioxide 19 L Anion Gap 15.4 H BUN 17 Creatinine 0.50 L GFR Calculation 89 BUN/Creatinine Ratio 34.00 H Glucose 88 POC Glucose 70 L 89 Calculated Osmolality 262.7 L Lactic Acid Calcium 8.1 L Magnesium 1.9 Iron TIBC % Saturation Total Bilirubin Direct Bilirubin Indirect Bilirubin AST ALT Alkaline Phosphatase C-Reactive Protein Total Protein Albumin Urine Opiates Screen Ur Barbiturates Screen Ur Phencyclidine Scrn U Amphetamine/Methamph U Benzodiazepines Scrn U Cocaine Metab Screen U Cannabinoids Screen [place] Screen 05/24/17 05/24/17 05/24/17 10:14 11:02 12:12 WBC 7.6 D RBC 4.66 Hgb 14.4 Hct 37.7 L MCV 80.9 L MCH 31 MCHC 38.2 H RDW 12.7 Plt Count 92 L D MPV 11.0 Neut % (Auto) 92.4 H Lymph % (Auto) 3.6 L Mingo % (Auto) 2.6 Eos % (Auto) 0.1 Baso % (Auto) 0.4 Neut # (Auto) 7.0 Lymph # (Auto) 0.3 L Mingo # (Auto) 0.2 Eos # (Auto) 0.0 Baso # (Auto) 0.0 Total Counted 100 Immature Gran % 0.9 Nucleated RBC % 0.5 Immature Gran # 0.07 Segmented Neutrophils 81 Band Neutrophils 10 Lymphocytes 7 L Monocytes 2 Nucleated RBCs # 0.04 Platelet Estimate Decreased Giant Platelets Few Immature Plt Fraction 0.0 L Hypochromasia Slight [place] Cells Slight Morphology Comment ESR Westergren ABG pH 7.454 H ABG pCO2 31.0 L ABG pO2 234.0 H ABG HCO3 23.5 ABG Total CO2 18.6 L ABG O2 Saturation 99.6 ABG Base Excess -1.1 Sodium Potassium Chloride Carbon Dioxide Anion Gap BUN Creatinine GFR Calculation BUN/Creatinine Ratio Glucose POC Glucose 78 Calculated Osmolality Lactic Acid Calcium Magnesium Iron TIBC % Saturation Total Bilirubin Direct Bilirubin Indirect Bilirubin AST ALT Alkaline Phosphatase C-Reactive Protein Total Protein Albumin Urine Opiates Screen Ur Barbiturates Screen Ur Phencyclidine Scrn U Amphetamine/Methamph U Benzodiazepines Scrn U Cocaine Metab Screen U Cannabinoids Screen [place] Screen - Reports Microbiology: Microbiology 05/23/17 14:59 Urine Culture - Preliminary Urine,In and Out Cath No Growth at 24 hours. 05/22/17 22:50 Blood Culture - Preliminary Blood No growth at 1 day 05/22/17 22:50 Blood Culture - Preliminary Blood No growth at 1 day - Diagnostic Findings Procedure: Chest x-ray: image reviewed by me, report reviewed by me (Increased interstitial markings, no consolidation appreciated), CT: report reviewed by me (Unremarkable CT head), Ultrasound: report reviewed by me (Gallbladder thickening on abdominal ultrasound, nothing else remarkable found)
[2017-05-24] MEDS: LEVOFLOXACIN INJ 750 MG in PREMIX 1 EACH IV SCH (18:21)
[2017-05-25] MEDS: VANCOMYCIN INJ 500 MG in SODIUM CHLORIDE 0.9% 100 ML IV SCH ×2 (03:00→16:28)
[2017-05-25] MEDS: PIPERACILLIN/TAZOBACTAM 3,375 MG in SODIUM CHLORIDE 0.9% 100 ML IV SCH ×2 (04:12→11:59)
[2017-05-25] MEDS: DEXTROSE 5% NACL 0.9% 1,000 ML IV SCH (04:13)
[2017-05-25] MEDS ORDERED: DEXTROSE 50% 25 GM/50 ML SYRINGE IV PRN (06:00)
[2017-05-25] MEDS: INSULIN REGULAR 100 UNIT/ML SUBCUT SCH ×2 (06:05→12:54)
--- NOTE | 2017-05-25 06:40 | Pulmonology Progress Note ---
Pulmonary - PN: Subj Interval history: This 61-year-old man who has mental retardation is in with apparent sepsis. He appeared more than yesterday but looks a little better today. Blood cultures are negative thus far. Oxygen saturation has improved and I think we can try him on some nasal oxygen. 05/25/2017 patient had chest and abdominal CT yesterday. He has anasarca. It appears that he does have a left lower lobe pneumonia. It is reasonable to treat him with antibiotics for that. Overall he is improved and his room air oxygen saturation is actually 98% now. Exam (Progress Note) - Constitutional Vitals: Period Temp Pulse Resp BP Sys/Tellez Pulse Ox Last 24 Hr 96.7 F-97.4 F 85-100 18-22 103-139/39-82 98-100 Exam: Vital signs normal. Pupils react to light. Presently his nasal biprong's are off and his oxygen saturation is 98%. Neck supple no bruits. Chest shows minimal rhonchi today, sounds much better than yesterday. Heart normal rate and rhythm no murmurs. Abdomen soft bowel sounds present. Extremities no clubbing cyanosis, there is leg edema and abdominal wall edema. Calves nontender. Results - Labs CBC & BMP: 05/24/17 10:14 05/24/17 06:27 Lab Results: I have reviewed the past 24 hour labs - Diagnostic Findings Procedure: CT - chest: image reviewed by me (Bilateral pleural effusions. Left lower lobe infiltrate probable pneumonia.) Assessment and Plan (1) Sepsis Status: Acute Assessment and plan: Acute sepsis syndrome. Neutropenia decreased level of consciousness. On broad- spectrum antibiotics. Source of sepsis is not clear yet. Blood cultures negative. Do not think he has pneumonia. 05/25/2017 this appears to be controlled with antibiotics and fluids. Need to back off fluids. Current Visit: Yes (2) Pancytopenia Status: Acute Assessment and plan: Platelet count and hematocrit only mildly decreased but with marked leukopenia. Consider medication induced. 05/25/2017 immunocompromised host. Tests for HIV were negative. Current Visit: Yes (3) Wasting generalized Status: Acute Assessment and plan: Generalized debilitation and poor nutritional status. 05/25/2017 needs nutritional support. Current Visit: Yes (4) Leukopenia Status: Acute Assessment and plan: Total neutrophil count down to 500. 05/25/2017 defer to hematology. Current Visit: Yes (5) Elevated LFTs Status: Acute Assessment and plan: GI evaluating. Current Visit: Yes (6) Left lower lobe pneumonia Status: Acute Assessment and plan: This is visible on the CT scan. Current antibiotic should cover. Patient does look clinically better. He is on vancomycin and Levaquin and Zosyn. Current Visit: Yes
[2017-05-25 07:45] LABS: Albumin 1.8 G/DL (3.4-5.0); Bilirubin,Direct 0.4 MG/DL (0.0-0.20); Bilirubin,Indirect 0.7 MG/DL (0.0-1.0); Bilirubin,Total 1.1 MG/DL (0.2-1.0); Calcium 8.1 MG/DL (8.5-10.1); Magnesium 1.9 MG/DL (1.8-2.4); Osmolality,Calculated 281.5 MOS/KG (273-304); Total Protein 4.1 G/DL (6.4-8.3)
[2017-05-25 08:08] LABS: Basophils % 0.2 % (0.0-0.8); Hematocrit 35.4 VOL% (42.0-52.0); Hemoglobin 13.1 GM/DL (14.0-18.0); Immature Granulocytes % 0.6 %; Immature Granulocytes Absolute 0.06 #; Lymphocytes # 0.3 10*3/uL (1.4-4.0); Lymphocytes % 3.6 % (21.2-54.2); Mean Corpuscular Hemoglobin 31 PG (27-34); Mean Corpuscular Volume 82.7 FL (87-102); Mean Platelet Volume 10.9 FL (9.6-12.0); Monocytes # 0.2 10*3/uL (0.11-0.8); Monocytes % 1.8 % (1.7-12.7); Neutrophils % 93.8 % (38.7-73.9); Red Blood Count 4.28 MC/CUMM (3.8-5.5); Red Cell Distribution Width 13.2 % (9.3-17.3); White Blood Count 9.6 T/CUMM (4-12)
[2017-05-25 08:12] LABS: Platelet Count 71 T/CUMM (130-400)
[2017-05-25] MEDS ORDERED: LORazepam 2 MG/1 ML VIAL IV PRN (08:28)
[2017-05-25 08:36] LABS: Band Neutrophils 6 % (0-10); Hypochromasia 1+; Lymphocytes 3 % (20-55); Nucleated Red Blood Cells 1 (0-5); Segmented Neutrophils 86 % (50-85); Total Cells Counted 100
[2017-05-25 08:37] LABS: Burr Cells 1+; Microcytosis Slight; Platelet Estimate Decreased
[2017-05-25 11:36] LABS: C-Peptide 6.2 ng/mL (1.1 - 4.4); Insulin Level Total 14.9 mcIU/mL (2.6 - 24.9)
--- NOTE | 2017-05-25 11:49 | Infectious Disease Progress ---
Assessment and Plan (1) Leukopenia Status: Acute Assessment and plan: This has rebounded to normal. The patient has evidence of left lung base pneumonia. Recommendations: Continue current antibiotics but if blood cultures remain negative at day 3, would stop vancomycin and Zosyn and continue levofloxacin for community-acquired pneumonia. Current Visit: Yes (2) Wasting generalized Status: Acute Current Visit: Yes Infectious Disease - PN: Subj Interval history: Patient was agitated earlier and therefore got Ativan and is now sedated. Infectious Disease Exam (PN) - Constitutional Vitals: Temp Pulse Resp BP Pulse Ox 97.5 F L 86 20 159/82 98 05/25/17 07:30 05/25/17 07:30 05/25/17 05:50 05/25/17 07:30 05/25/17 07:30 General appearance: cachectic Exam: General appearance: Cachectic, sedated - Eye Eye exam: Present: EOMI. no icterus Pupils: Present: Pupils constricted, apparent cataracts bilaterally - ENT ENT exam: Pale mucosa, mouth very dry - Respiratory Respiratory exam: vesicular BS, no crepitations or wheezes - Cardiovascular Cardiovascular exam: regular rate and rhythm, no murmurs - GI/Abdominal GI/Abdominal exam: normal bowel sounds, soft, non-tender, no organomegaly or mass - Extremities Exam Extremities exam: Dependent edema present - Skin Skin exam: no rash but scratch bustamante over upper extremities Results - Labs CBC & BMP: 05/25/17 08:01 05/25/17 07:01 Lab Results: I have reviewed the past 24 hour labs (Blood cultures negative today) - Diagnostic Findings Procedure: CT Abdomen and Pelvis: image reviewed by me, report reviewed by me ( Consolidation in left lung base) Quality Measures - VTE Contraindication to Pharmacological VTE Prophylaxis: Thrombocytopenia
--- NOTE | 2017-05-25 12:23 | Gastrointestinal Progress Note ---
Assessment and Plan (1) Ischemic hepatitis Status: Acute Assessment and plan: Patient may have had a Tylenol overdose however I believe that with these present picture of sepsis with low white blood cell count and dropping platelet level that is more likely that he suffered an episode of ischemia resulting in the elevations liver function tests, albeit transient. Patient's blood pressures here up on the floor have been better. I expect that his liver function tests will probably peak in the next 24-48 hours and start improving thereafter, provided this is not reflective of her previous Tylenol overdose that is now "catching up with him". The only evidence pointing towards that as a potential etiology is the fact that his kidney function is actually quite normal. We will simply watch his liver function tests over the next day or 2 provided he has not succumbed to his illness. He is not a candidate for transplant. He does not appear to have any HIV or hepatitis B or C. Will check his laboratories for underlying hemochromatosis and autoimmune hepatitis as well. I would like to obtain a liver ultrasound to look for masses in the liver as well as ascites. I agree with the patient's family that nothing aggressive should be done. Supportive care is all that is needed at this point , unfortunately it is too late at this point for Mucomyst protocol, even if this was a Tylenol overdose. 05/24/17--The sister gives the information that this is likely not a Tylenol overdose. Iron saturation has returned and that demonstrates no evidence of hemochromatosis. Patient does not have hepatitis B or C and does not have HIV. This is still likely an ischemic hepatitis caused by hypotension either from arrhythmia or overwhelming infection most likely. We will continue to watch his liver function tests which should start to improve over the next 24-48 hours , provided his condition remained stable and his infection is being treated. His condition is still guarded. He remains afebrile and laboratories from today are pending. 05/25/17--This patient has ischemic hepatitis based on the improvement he is experiencing in his liver function tests over the last 48 hours supportive care is all that is needed for this. I will sign off at this time thank you for this interesting consult. Good luck with this challenging patient. Current Visit: Yes (2) Anemia Status: Acute Assessment and plan: Patient's hematocrit is 34%. I suspect that he probably has some bone marrow suppression with underlying sepsis as mentioned. Does not appear to be any gross evidence of a GI bleed. We will continue to monitor for the present time. No indication for endoscopic evaluation yet. If the patient survives the next several days it might be reasonable to obtain liver biopsy to make sure there is no diffuse parenchymal problem, and to establish the etiology of the transaminase elevation. Will follow with you, thank you for this interesting consult. 05/24/17--we will continue to monitor. The laboratories from today are pending. 05/25/17--Patient's liver function tests are much improved. A GI standpoint he can be discharged any time. The anemia appears to be stable. Current Visit: Yes Gastroenterology - PN: Subj Interval history: The patient's AST levels dropped from 1011 down to 155 over the last 2 days as predicted, ALT is also decreased from 589-->222 over that same period time, with a relatively improved alkaline phosphatase down from 163-->124--note the patient's baseline alkaline phosphatase is 68. The bilirubin appears to have peaked yesterday going from 0.4 up to a high of 1.3 is now down to 1.10. Ultrasound demonstrated cholelithiasis but no ductal dilatation and the gallbladder wall is thickened to 3 mm. This is all consistent with ischemic hepatitis. Exam (Progress Note) - Constitutional Vitals: Period Temp Pulse Resp BP Sys/Tellez Pulse Ox Last 24 Hr 96.9 F-97.5 F 85-97 19-22 103-159/39-82 98-100 General appearance: under weight - Eye Eye exam: Absent: scleral icterus - Respiratory Respiratory exam: Present: clear to auscultation bilaterally. Absent: rhonchi, stridor, wheezes - Cardiovascular Cardiovascular exam: Present: regular rate and rhythm - GI/Abdominal GI/Abdominal exam: Present: normal bowel sounds, distended, soft. Absent: guarding, tenderness, rebound - Neurological Exam Neurological exam: Present: altered (Patient is essentially nonresponsive to all but painful stimuli, he is said to be mentally challenged) - Psychiatric Psychiatric exam: Present: normal affect, normal mood - Skin Skin exam: Present: warm Results - Labs CBC & BMP: 05/25/17 08:01 05/25/17 07:01
--- NOTE | 2017-05-25 12:55 | Hospitalist Progress Note ---
Assessment and Plan (1) Multiple episodes of hypoglycemia Status: Acute Assessment and plan: Continue on D5 Current Visit: Yes (2) Wasting generalized Status: Acute Assessment and plan: HIV negative Appears to not be acute Will give patient a chance to wake up and eat on his own It will be challenging to place and maintain a NGT in this patient Current Visit: Yes (3) Leukopenia Status: Resolved Assessment and plan: Resolved Current Visit: Yes (4) Unresponsiveness Status: Acute Current Visit: Yes (5) Elevated LFTs Status: Acute Assessment and plan: Much improved Appears to have been ischemic GI has signed off, thanks for the assistance Current Visit: Yes (6) Sepsis Status: Acute Assessment and plan: Of unknown etiology CXR without acute process Urine culture and blood culture without growth to date WBC count is wnl today, but still with over 90% neutrophils Covering broadly now with vancomycin, levaquin and zosyn CT C/A/P yesterday with pneumonia, does not seem significant enough to be the cause of his acute illness Lactic acid back to normal HIV negative Infectious Disease assisting Current Visit: Yes (7) Hyponatremia Status: Resolved Current Visit: Yes (8) Respiratory failure Status: Acute Assessment and plan: Acidotic on admission Improved with Bipap Pulmonary assisting Doing well on nasal cannula now Current Visit: Yes (9) Left lower lobe pneumonia Status: Acute Assessment and plan: Continue vanc, levaquin and zosyn today Should be able to de-escalate soon Current Visit: Yes Hospitalist: Subjective Interval history: No acute events overnight. Patient doing better, respiratory status is much improved. He his still now waking up. He does fight against being touched. Exam - Constitutional Vitals: Period Temp Pulse Resp BP Sys/Tellez Pulse Ox Last 24 Hr 96.9 F-97.5 F 85-97 19-22 103-159/39-82 98-100 General appearance: cachectic - Head Head exam: Present: normocephalic, atraumatic - Eye Eye exam: Present: EOMI - ENT ENT exam: Present: normal exam - Neck Neck exam: Present: normal inspection - Respiratory Respiratory exam: Present: clear to auscultation bilaterally. Absent: wheezes - Cardiovascular Cardiovascular exam: Present: regular rate and rhythm - GI/Abdominal GI/Abdominal exam: Present: normal bowel sounds, soft. Absent: tenderness, rebound - Extremities Exam Extremities exam: Present: normal inspection - Back Exam Back exam: Present: normal inspection - Neurological Exam Neurological exam: Present: other (drowsy) - Skin Skin exam: Present: warm, intact Results - Labs CBC & BMP: 05/25/17 08:01 05/25/17 07:01 Quality Measures - VTE Contraindication to Pharmacological VTE Prophylaxis: Thrombocytopenia
--- NOTE | 2017-05-25 16:51 | Event Note ---
Informed by nursing staff that patient was apneic. Went in to see patient, noted shallow breaths and he was even less responsive than earlier today. He was also noted to be gurgling. Patient is Do Not Resuscitate. Ordered suctioning and ABGs but before any of this could be done he . Time of is 1644.
[2017-05-25] MEDS ORDERED: VANCOMYCIN INJ 750 MG in SODIUM CHLORIDE 0.9% 250 ML IV SCH (17:00)
[2017-05-25 17:37] VITALS: BP 135/80
[2017-05-26 09:41] LABS: % CD4 (T Cells) 49 % (32-64); % CD8 (T Cells) 27 % (8-40); 4/8 Ratio 1.8 (>=0.9)
[2017-05-29 12:56] LABS: Proinsulin, P 2.6 pmol/L (3-20)
== END 2017-05-25 16:45 | disposition expired | DRG 871 ==
LOC: EDUNIT# → EDBD → N.ED 21:34 → N.EDINP 05-23 00:55 → SUATTDRO 05-23 00:55 → N.5E 05-23 01:30
PROVIDERS: ADMIT Internal Medicine; ATTEND Internal Medicine